=== PATIENT | female | born 1975 | race Caucasian/White ===

== ENCOUNTER 2022-11-14 07:31 | Outpatient (OUT) | payer BC, SELFPAY ==
[2022-11-14 08:02] LABS: Basophils Absolute Auto 0.1 10^3/uL (0.0-0.1); Basophils Percent Auto 0.7 % (0.2-2.0); Eosinophils Absolute Auto 0.1 10^3/uL (0.0-0.7); Eosinophils Percent Auto 1.7 % (0.9-7.0); Hemoglobin 13.9 g/dL (12.0-16.0); Immature Granulocytes Abs Auto 0.02 10^3/uL (0.00-0.03); Immature Granulocytes Pct Auto 0.3 % (0.0-0.5); Lymphocytes Absolute Auto 1.9 10^3/uL (1.2-3.8); Lymphocytes Percent Auto 25.1 % (20.5-60.0); Mean Corpuscular HGB Conc 33.9 g/dL (29.9-35.2); Mean Corpuscular Hemoglobin 31.5 pg (26.7-34.0); Mean Platelet Volume 10.1 fL (9.5-13.5); Monocytes Absolute Auto 0.5 10^3/uL (0.3-0.8); Neutrophils Absolute Auto 5.1 10^3/uL (1.4-6.5); Neutrophils Percent Auto 66.2 % (43.0-75.0); Platelet Count 342 10^3/uL (150-450); Red Blood Count 4.41 10^6/uL (4.20-5.40); Red Cell Distribution Width 12.4 % (11.0-15.0); White Blood Count 7.6 10^3/uL (4.0-11.0)
[2022-11-14 08:30] LABS: Estimated Average Glucose 103 mg/dL; Glycohemoglobin A1C 5.2 % (4.5-6.2)
[2022-11-14 09:18] LABS: Alanine Aminotransferase 19 U/L (14-59); Albumin Globulin Ratio 1.1; Albumin Level 3.7 g/dL (3.4-5.0); Alkaline Phosphatase 65 U/L (46-116); Anion Gap 12.6; Aspartate Amino Transferase 15 U/L (15-37); BUN Creatinine Ratio 11.7; Bilirubin Total 0.5 mg/dL (0.2-1.0); Calcium 9.1 mg/dL (8.5-10.1); Carbon Dioxide 27.4 mmol/L (21.0-32.0); Chloride 102 mmol/L (98-107); Chol HDL Ratio 2.8; Cholesterol 148 mg/dL (<=200); Estimated GFR (African America >60 (>=60); Estimated GFR (Non-African Ame >60 (>=60); Free T3 2.69 pg/mL (2.18-3.98); Globulin 3.5 g/dL; Glucose 95 mg/dL (74-106); HDL Cholesterol 52 mg/dL (40-60); Sodium 138 mmol/L (136-145); Thyroid Stimulating Hormone 1.409 uIU/mL (0.358-3.740); Total Protein 7.2 g/dL (6.4-8.2); Triglycerides 70 mg/dL (<=150)
== END 2022-11-14 07:32 | disposition home or self-care (01) ==
LOC: LAB 07:36
PROVIDERS: PCP Family Medicine; Visit Provider Family Medicine
DX: Z00.00 Encounter for general adult medical examination without abnormal findings (principal); E78.5 Hyperlipidemia, unspecified; R73.09 Other abnormal glucose
CPT/HCPCS: 36415; 80053; 80061; 83036; 83525; 84436; 84443; 84481; 85025

== ENCOUNTER 2024-04-05 08:16 | Outpatient (OUT) | payer BC, SELFPAY ==
[2024-04-05 08:55] LABS: Basophils Percent Auto 0.4 % (0.2-2.0); Eosinophils Absolute Auto 0.2 10^3/uL (0.0-0.7); Eosinophils Percent Auto 2.2 % (0.9-7.0); Hematocrit 40.4 % (36.0-48.0); Hemoglobin 13.8 g/dL (12.0-16.0); Immature Granulocytes Abs Auto 0.03 10^3/uL (0.00-0.03); Immature Granulocytes Pct Auto 0.3 % (0.0-0.5); Lymphocytes Absolute Auto 2.1 10^3/uL (1.2-3.8); Mean Corpuscular HGB Conc 34.2 g/dL (29.9-35.2); Mean Corpuscular Hemoglobin 30.9 pg (26.7-34.0); Mean Corpuscular Volume 90.6 fL (81.0-99.0); Mean Platelet Volume 9.7 fL (9.5-13.5); Monocytes Absolute Auto 0.6 10^3/uL (0.3-0.8); Monocytes Percent Auto 6.1 % (1.7-12.0); Neutrophils Absolute Auto 6.2 10^3/uL (1.4-6.5); Platelet Count 349 10^3/uL (150-450); Red Blood Count 4.46 10^6/uL (4.20-5.40); Red Cell Distribution Width 12.7 % (11.0-15.0); White Blood Count 9.1 10^3/uL (4.0-11.0)
[2024-04-05 09:12] LABS: Estimated Average Glucose 111 mg/dL; Glycohemoglobin A1C 5.5 % (4.5-6.2)
[2024-04-05 09:43] LABS: Alanine Aminotransferase 23 U/L (14-59); Albumin Globulin Ratio 1.1; Albumin Level 3.6 g/dL (3.4-5.0); Alkaline Phosphatase 57 U/L (46-116); Anion Gap 10.9; Aspartate Amino Transferase 11 U/L (15-37); BUN Creatinine Ratio 13.3; Bilirubin Total 0.7 mg/dL (0.2-1.0); Calcium 8.9 mg/dL (8.5-10.1); Carbon Dioxide 28.1 mmol/L (21.0-32.0); Chloride 105 mmol/L (98-107); Cholesterol 168 mg/dL (<=200); Estimated GFR (African America >60 (>=60 mL/min/1.73m^2); Estimated GFR (Non-African Ame >60 (>=60 mL/min/1.73m^2); Free T3 2.78 pg/mL (2.18-3.98); Globulin 3.4 g/dL; Glucose 103 mg/dL (74-106); HDL Cholesterol 56 mg/dL (40-60); Sodium 140 mmol/L (136-145); Thyroid Stimulating Hormone 1.418 uIU/mL (0.358-3.740); Triglycerides 65 mg/dL (<=150)
[2024-04-06 11:07] LABS: Insulin 17.3 uIU/mL (2.6-24.9)
== END 2024-04-05 08:17 | disposition home or self-care (01) ==
LOC: LAB 08:17
PROVIDERS: PCP Family Medicine; Visit Provider Family Medicine
DX: R53.83 Other fatigue (principal); R06.00 Dyspnea, unspecified; E78.5 Hyperlipidemia, unspecified; R73.09 Other abnormal glucose; D64.9 Anemia, unspecified; E03.9 Hypothyroidism, unspecified; E55.9 Vitamin D deficiency, unspecified; I10 Essential (primary) hypertension
CPT/HCPCS: 36415; 80053; 80061; 82306; 83036; 83525; 83540; 84436; 84443; 84481; 85025

== ENCOUNTER 2024-09-02 15:18 | Outpatient (REF) | payer BC, SELFPAY ==
--- OUTSIDE RECORDS SUMMARY | 2024-09-02 15:20 | XMS_ITS | Patient Health Record ---
Author Organization [facility] in [place] Address [address] [place] [address] Care Team Providers Care Sleeve Turner Name Role Phone Joselo Javon Primary Care Provider Allergies Allergen (clinical drug ingredient) Drug/Non Drug Allergy documented on EMR Reaction Allergy Type Onset Date Status hydromorphone Dilaudid nausea and itching Drug Allergy Active Substance with sulfonamide structure and antibacterial mechanism of action (substance) Sulfa Antibiotics itching Drug Allergy Active ciprofloxacin Ciprofloxacin vomiting Drug Allergy Active Results Component Value Reference Range Notes INSULIN Reviewed date:04/06/2024 11:13:03 AM Interpretation: Performing Lab: Notes/Report: [facility] , Insulin 17.3 2.6-24.9 uIU/mL [address] [place], [place] [id number] Performed at: [facility] Launch Check Out: Garrett Guy PhD, Phone: [phone] Performing Lab: see note - [facility] LB VITAMIN D 25 [place] Reviewed date:04/05/2024 02:09:44 PM Interpretation: Performing Lab: Notes/Report: [facility] , Vitamin D 23.3 <20 ng/mL Vit D deficient >100 ng/mL Potential Toxicity 20-<30 ng/mL Vit D insufficient 30-100 ng/mL Vit D sufficient Performing Lab: see note - [facility] LB TSH Reviewed date:04/05/2024 02:09:44 PM Interpretation: Performing Lab: Notes/Report: [facility] , Thyroid Stimulating Hormone 1.418 0.358-3.740 u IU/mL Performing Lab: see note - [facility] LB T4 Reviewed date:04/05/2024 02:09:44 PM Interpretation: Performing Lab: Notes/Report: [facility] , T4 Thyroxine 7.50 4.80-13.90 ug/dL Performing Lab: see note ML - [facility] LB PROF 14(COMP METB) Reviewed date:04/05/2024 02:09:44 PM Interpretation: Performing Lab: Notes/Report: [facility] , Sodium 140 136-145 mmol/L Potassium 4.0 3.5-5.1 mmol/L Chloride 105 98-107 mmol/L Carbon Dioxide 28.1 21.0-32.0 mmol/L Anion Gap 10.9 Glucose 103 74-106 mg/dL Blood Urea Nitrogen 10.0 7.0-18.0 mg/dL Creatinine 0.75 0.55-1.02 mg/dL Estimated GFR ( Teri >60 >=60 mL/min/1.73m 2 Estimated GFR (Non- Miley >60 >=60 mL/min/1.73m 2 BUN Creatinine Ratio 13.3 Calcium 8.9 8.5-10.1 mg/dL Bilirubin Total 0.7 0.2-1.0 mg/dL Aspartate Amino Transferase 11 15-37 U/L Alanine Aminotransferase 23 14-59 U/L Alkaline Phosphatase 57 46-116 U/L Total Protein 7.0 6.4-8.2 g/dL Albumin Level 3.6 3.4-5.0 g/dL Globulin 3.4 Albumin Globulin Ratio 1.1 Performing Lab: see note ML - [facility] LB LIPID PROFILE Reviewed date:04/05/2024 02:09:44 PM Interpretation: Performing Lab: Notes/Report: [facility] , Triglycerides 65 <=150 mg/dL Cholesterol 168 <=200 mg/dL HDL Cholesterol 56 40-60 mg/dL > or =60 mg/dl - LOW CARDIOVASCULAR RISK <40 mg/dl - HIGH CARDIOVASCULAR RISK LDL Cholesterol Calculated 99.0 <100 mg/dl OPTIMAL 130-159 mg/dl BORDERLINE HIGH 160-189 mg/dl HIGH 100-129 mg/dl NEAR OR ABOVE OPTIMAL >190 mg/dl VERY HIGH VLDL CHOLESTEROL 13.0 Chol HDL Ratio 3.0 7.1 - 11.0 MODERATE RISK 3.3 - 4.4 LOW RISK >11.0 HIGH RISK 4.4 - 7.1 AVERAGE RISK Performing Lab: see note - [facility] LB IRON Reviewed date:04/05/2024 02:09:44 PM Interpretation: Performing Lab: Notes/Report: [facility] , Iron 138.0 50.0-170.0 ug/dL Performing Lab: see note - [facility] LB GLYCOHEMOGLOBIN A1C Reviewed date:04/05/2024 02:09:44 PM Interpretation: Performing Lab: Notes/Report: [facility] , Glycohemoglobin A1C 5.5 4.5-6.2 % ADA RECOMMENDED LIMIT 4.0 - 6.0 > 7.0 ADA THERAPEUTIC TARGET < 7.0 ACTION SUGGESTED Estimated Average Glucose 111 Performing Lab: see note - [facility] FREE T3 Reviewed date:04/05/2024 02:09:44 PM Interpretation: Performing Lab: Notes/Report: [facility] , Free T3 2.78 2.18-3.98 pg/mL Performing Lab: see note - [facility] CBC AUTO DIFF Reviewed date:04/05/2024 02:09:44 PM Interpretation: Performing Lab: Notes/Report: [facility] , White Blood Count 9.1 4.0-11.0 10 3/uL Red Blood Count 4.46 4.20-5.40 10 6/uL Hemoglobin 13.8 12.0-16.0 g/dL Hematocrit 40.4 36.0-48.0 % Mean Corpuscular Volume 90.6 81.0-99.0 fL Mean Corpuscular Hemoglobin 30.9 26.7-34.0 pg Mean Corpuscular HGB Conc 34.2 29.9-35.2 g/dL Red Cell Distribution Width 12.7 11.0-15.0 % Platelet Count 349 150-450 10 3/uL Mean Platelet Volume 9.7 9.5-13.5 fL Neutrophils Percent Auto 68.0 43.0-75.0 % Lymphocytes Percent Auto 23.0 20.5-60.0 % Monocytes Percent Auto 6.1 1.7-12.0 % Eosinophils Percent Auto 2.2 0.9-7.0 % Basophils Percent Auto 0.4 0.2-2.0 % Immature Granulocytes Pct Auto 0.3 0.0-0.5 % Neutrophils Absolute Auto 6.2 1.4-6.5 10 3/uL Lymphocytes Absolute Auto 2.1 1.2-3.8 10 3/uL Monocytes Absolute Auto 0.6 0.3-0.8 10 3/uL Eosinophils Absolute Auto 0.2 0.0-0.7 10 3/uL Basophils Absolute Auto 0.0 0.0-0.1 10 3/uL Immature Granulocytes Abs Auto 0.03 0.00-0.03 10 3/uL Performing Lab: see note ML - The [facility] Reason For Referral No Information Medications Medication SIG (Take, Route, Frequency, Duration) [...] 02/20/1988 When did you stop smoking? 02/19/2018 Alcohol Screen (Audit-C) Question Answer Notes Did you have a drink contain ing alcohol in the past year? Yes How often did you have 6 or more drinks on one occasion in the past year? Never (0 point) How many drinks did you have on a typical day when you were drinking in the past year? 1 or 2 drinks (0 point) How often did you have a dri nk containing alcohol in the past year? Less than monthly (1 point) Points 1 Interpretation Negative Problems Problem Type SNOMED Code ICD Code Onset Dates Problem Status W/U Status Risk Notes Problem Gastroesophageal reflux disease (089945802) GERD (gastroesophageal reflux disease) (K21.9) Active confirmed Problem Dyspnea (031712706) Dyspnea (R06.00) Active con firmed Problem Overweight (715192544) Over weight (E66.3) Active confirmed Problem Acute gastroenteritis (30375153) Acute gastroenteritis (K52.9) Active confirmed Problem Onychomycosis caused by dermatophyte (391215158) Dermatophytic onychia (B35.1) Active confirmed Problem Fatigue (11703294) Activity intolerance related to fatigue (R53.83) Active confirmed Vital Signs Blood pressure diastolic 94 mm Hg 04/02/2024 Height 62 in 04/02/2024 Blood pressure systolic 154 mm Hg 04/02/2024 Weight 215 lbs 04/02/2024 BMI 39.32 kg/m2 04/02/2024 Encounters Encounter Location Date Provider Diagnosis [facility] [address] [place] [address] 04/02/2024 Javon Josue Fatigue R53.[address] [facility] [address] [place] [address] 04/05/2024 Javon Josue Assessments Encounter Date Diagnosis (ICD Code) Assessment Notes Treatment Notes Treatment Clinical Notes Section Notes 04/02/2024 Fatigue (ICD-10 - R53.83) 04/02/2024 Dyspnea (ICD-10 - R06.00) Plan Of Treatment Pending Test Test Name Order Date CMP (COMPLETE METABOLIC PANEL) 3 HEMOGLOBIN A1C (GLYCO) 04/02/2024 HEMOGLOBIN A1C (GLYCO) 11/06/2022 IRON, TOTAL 04/02/2024 LIPID PANEL (CHOL/TRIG/HDL/LDL) 04/02/19 25 LIPID PANEL (CHOL/TRIG/HDL/LDL) 11/07/19 23 CBC WITH DIFF 11/06/2022 CBC WITH DIFF 04/02/2024 VITAMIN D, 25 LEVEL (TOTAL) 04/02/2024 Insulin Level 04/02/2024 Insulin Level 11/06/2022 THYROID PANEL (T4/TSH/FREE T3) 3 THYROID PANEL (T4/TSH/FREE T3) 5 CMP (COMP MET BARRIOS) w/eGFR CKD-EPI 2024 Insurance Providers Payer Name Payer Address Payer Phone Subscriber Number Group Number Insured Name Patient Relationship to Insured Coverage Start Date Coverage End Date [employer] PPO PLUS LOCAL PLAN [address] [place] [phone] [id number] Mary Zimmer Self - patient is the insured Medical (General) History Medical History History ICD Code ONYCHIA OBESITY GASTROENTERITIS FATIGUE NEAR SYNCOPE Surgical History Surgery Date(Month/Year) hysterectomy tubal Hospitalization History Reason Date(Month/Year) see above
[2024-09-05 12:08] LABS: Age Gdln ACOG Testing Note (.); IGP, Aptima HPV, rfx 16/18,45 Note (.)
== END 2024-09-02 15:19 | disposition home or self-care (01) ==
LOC: LAB 15:18
PROVIDERS: PCP Family Medicine; Visit Provider Obstetrics & Gynecology
DX: Z01.419 Encounter for gynecological examination (general) (routine) without abnormal findings (principal)
CPT/HCPCS: 88175

== ENCOUNTER 2024-09-24 08:39 | Outpatient (OUT) | payer BC, SELFPAY ==
--- OUTSIDE RECORDS SUMMARY | 2023-04-23 06:56 | XMS_ITS ---
Author Organization The [facility] in [place] Address [address] [place] [address] Care Team Providers Care Trainmaster Name Role Phone Javon Ash Primary Care Provider [phone] STACI ASH Unavailable [phone] REASON FOR VISIT perioral dermatitis Medications Medication SIG (Take, Route, Frequency, Duration) Notes Start Date End Date Status Triamcinolone Acetonide 0.1 % 1 application Externally Twice a day for 04/23/2023 Active Encounters Encounter Location Date Provider Diagnosis [address] [address] 04/23/2023 STACI ASH Plan Of Treatment Medication Medication Name Sig Start Date Stop Date Notes Triamcinolone Acetonide 0.1 % 1 applicat ion Externally Twice a day for 30 04/23/2023 Progress Notes * YOVANY RolandmteDOB: [birth year] (47 yo F)Acc No.[id number]:04/23/2023 Patient: Mary Maynard :1975 A ge:47 Y S ex:Female Address:[address] [place] [address], [address] * Refills Start Triamcinolone Acetonide Cream, 0.1 %, Externally, 60, 1 application, Twice a day, 30, Refills=11 * true * Date: Generated for Printi ng/Famurrayg/eTransmitting on: 0 09/24/2024 08:43 AM EDT
--- OUTSIDE RECORDS SUMMARY | 2024-04-02 12:00 | XMS_ITS ---
Author Organization The [facility] in [place] Address [address] [place] [address] Care Team Providers Care Range Aide Name Role Phone Javon Josue Primary Care Provider [phone] Allergies Allergen (clinical drug ingredient) Drug/Non Drug Allergy documented on EMR Reaction Allergy Type Onset Date Status hydromorphone Dilaudid nausea and itching Drug Allergy Active Substance with sulfonamide structure and antibacterial mechanism of action (substance) Sulfa Antibiotics itching Drug Allergy Active ciprofloxacin Ciprofloxacin vomiting Drug Allergy Active REASON FOR VISIT Shortness of Breath, Fatigue, Lightheaded, Dizziness, Lack of Modivation, Sometimes with chest painin morning and sometime in nightime (Wakes patient from sleep) Medications Medication SIG (Take, Route, Frequency, Duration) Notes Start Date End Date Status Pristiq 50 MG 1 tablet Orally Once a day for 30 days 04/02/2024 Active Social History Tobacco Use: Social History Observation Description Date Details (start date - stop date) Former Smoker 02/20/1988 - 02/19/2018 Tobacco Use/Smoking Question Answer Notes Patient is a former smoker When did you start smoking? 02/20/1988 When did you stop smoking? 02/19/2018 Problems Problem Type SNOMED Code ICD Code Onset Dates Problem Status W/U Status Risk Notes Problem Dyspnea (R06.00) Active confirmed Vital Signs Blood pressure systolic 154 mm Hg 04/02/19 25 Blood pressure diastolic 94 mm Hg 025 Height 62 in 04/02/2024 Weight 215 lbs 04/02/2024 BMI 39.32 kg/m2 04/02/2024 Encounters Encounter Location Date Provider Diagnosis [facility] [address] [place] [address] 04/02/2024 Javon Josue Fatigue R53.83 and Dyspnea R06.00 Assessments Encounter Date Diagnosis (ICD Code) Assessment Notes Treatment Notes Treatment Clinical Notes Section Notes 04/02/2024 Fatigue (ICD-10 - R53.83) 04/02/2024 Dyspnea (ICD-10 - R06.00) Plan Of Treatment Medication Medication Name Sig Start Date Stop Date Notes Pristiq 50 MG 1 tablet Orally Once a day for 30 days 04/02 Pending Test Test Name Order Date HEMOGLOBIN A1C (GLYCO) 04/02/2024 IRON, TOTAL 04/02/2024 LIPID PANEL (CHOL/TRIG/HDL/LDL) 04/02/19 25 CBC WITH DIFF 04/02/2024 VITAMIN D, 25 LEVEL (TOTAL) 04/02/2024 Insulin Level 04/02/2024 THYROID PANEL (T4/TSH/FREE T3) CMP (COMP MET BARRIOS) w/eGFR CKD-EPI 2024 Progress Notes * YOVANY RolandYomairaOB: [birth year] (48 yo F)Acc No.[id number]:04/02/2024 Progress Note Patient: Mary HENNING Provider: Galileo Josue ([facility])MD :1975 A ge:48 Y S ex:Female Date:04/02/2024 Address:[address] [place], [place] [address] Check In:03:53 PM ESTCheck O ut:04:30 PM EST Subjective: * Chief Complaints: * S hortness of Breath, Fatigue, Lightheaded, Dizziness, Lack of ModivationSometimes with chest pain in morning and sometime in nightime (Wakes patient from sleep) * HPI: D epression Screening: PHQ-2 (2015 Edition) L ittle interest or pleasure in doing things??Several days F eeling down, depressed, or hopeless? S everal days T otal Score 2 [place] for last coule months fatigue no PC with activity - some with laying dose. D epression Screening: PHQ-9 L ittle interest or pleasure in doing things?Several days F eeling down, depressed, or hopeless S everal days T rouble falling or staying asleep, or sleeping too much N early every day F eeling tired or having little energy N early every day P oor appetite or overeating M ore than half the days F eeling bad about yourself or that you are a failure, or have let yourself or your family down N ot at all T rouble concentrating on things, such as reading the newspaper or watching television S ever M oving or speaking so slowly that other people could have noticed; or the opposite, being so fidgety or restless that you have been moving around a lot more than usual N ot at all T houghts that you would be better off or of hurting yourself in some way N ot at all T otal Score 1 1 I nterpretation M oderate Depression * ROS: E ENT: hearing changes d enies. v isual changes d enies.?non-healing mouth sores d enies. s wollen glands or neck lumps d enies. h oarseness d enies. s ore throat d enies. d ifficulty swallowing d enies. n ose bleeds d enies. n leyda congestion d enies. e ar ache d enies. e ar discharge?denies. r inging in ears d enies. l ight sensitivity d enies. e ye pain d enies. b lurring d enies. e ye irritation d enies. d ouble vision d enies.?vision loss d enies. G eneral/Constitutional: Sweats: D enies. F atigue d enies. S leep problems d enies. A norexia d enies. M alaise d enies. W eight loss d enies.?Fatigue or Weakness d enies. F ever or Chills d enies. C ardiovascular: Shortness of Breath w/lying flat d enies. L ightheadedness/dizziness d enies. C hest tightness/ heavy pressure d enies. S welling of legs, ankles, or feet d enies. W aking up with shortness of breath d enies. C hest pain denies. P alpitations d enies. W eight gain d enies. R espiratory: Chronic or frequent cough d enies. C oughing up blood?denies. D ifficulty breathing d enies. P roductive cough d enies. S noring?denies. S hortness of breath that awakens from sleep (PND) d enies. C hest pain d enies. S putum production d enies. W heezing d enies. M usculoskeletal: Joint pain d enies. J oint Fluid d enies. B ack pain d enies. K nee pain d enies. N jessica pain d enies. J oint Stiffness d enies. M uscle cramps d enies. W eakness of muscles d enies. A rthritis d enies. M uscle aches d enies. P ain in shoulder(s) d enies. S wollen joints d enies. * Active Problem List B35.1 Dermatophytic onychi a Modified On:10/31/2022/U Status:confirmed E66.3 Over weight Modified On:10/31/2022/U Status:confirmed K52.9 Acute gastroenteriti s Modified On:10/31/2022/U Status:confirmed R53.83 Activity intolerance related to fatigue Modified On:10/31/2022/U Status:confirmed K21.9 GERD (gastroesophage al reflux disease) Modified On:11/06/2022/U Status:confirmed R06.00 Dyspnea Modified On:04/02/2024/U Status:confirmed * Medical History: * Surgical History: t ubal hysterectomy * Hospitalization/Major Diagno stic Procedure: s ee above * Family History: F ather: , RA, COPD, diagnosed with Unspecified essential hypertension. M other: alive, anemia. B rother(s): alive. 3 brother(s) - healthy. 1 son(s) , 1 daughter(s) - healthy. . * Social History: T obacco Use: T obacco Use/Smoking P atient is a f ormer smoker W hen did you start smoking? 0 02/20/1988 W hen did you stop smoking? 0 02/19/2018 * Medications: D iscontinuedAmoxicillin-Pot Clavulanate 875-125 MG Tablet 1 tablet Orally every 12 hrs Triamcinolone Acetonide 0.1 % Cream 1 application Externally Twice a day Medication List reviewed and reconciled with the patientDiscontinued Amoxicillin-Pot Clavulanate 875-125 MG Tablet 1 tablet Orally every 12 hrs Discontinued Triamcinolone Acetonide 0.1 % Cream 1 application Externally Twice a day Medication List reviewed and reconciled with the patient * Allergies: D ilaudid: nausea and itchingSulfa Antibiotics: itchingCiprofloxacin: vomitingno[Allergies Verified] Objective: * Vitals: W t:215lbs, Ht: 62 in, BP:154/94mm Hg, BMI:39.32Index, Ht-cm: 157.48 cm, Wt-k.52 kg. * Examination: P hysical Exam: GENERAL: w ell developed, well nourished, in no acute distress. HEAD: n ormocephalic/atraumatic. EYES: p upils equal, round and reactive to light, conjunctivae and sclerae normal. EARS: n o deformity or lesion of external ear, canals and TM appear normal bilaterally, TM's intact, not inflamed with normal light reflex, hearing grossly normal to conversational speech. NOSE: n o deformity, discharge, inflammation, or lesions.? MOUTH: m ucous membranes moist, normal oropharynx and posterior pharynx without lesions or exudates, tongue normal, dentition normal. NECK: n jessica supple, no masses or palpable cervical nodes, trachea midline, thyroid without nodules, masses, tenderness, or enlargement. CHEST: n o chest wall deformity, no chest wall tenderness.? LUNGS: n ormal respiratory effort and clear to auscultation, no wheezes, rales, or rhonchi, good air exchange. CARDIO: r egular rate and rhythm, normal S1 and S2, nor murmur, rub, or gallop. PULSES: n ormal capillary refill. ABDOMEN: s oft, non-distended, non-tender, no masses. MUSCULOSKELETAL: n o deformity or scoliosis noted, normal range of motion, joints normal, no erythema, edema, effusion, or ecchymosis. EXTREMITY: n o clubbing, cyanosis, edema, or deformity with normal ROM in both upper and lower bilateral extremities. NEUROLOGIC: g rossly normal. SKIN: n o rashes, ulcerations, or suspicious lesions. LYMPH NODES: n o cervical adenopathy, nodes normal. MENTAL STATUS: a lert and oriented x3, normal mood and affect. Assessment: * Assessment: 1. F atigue - R53.83 (Primary) 2 . D yspnea - R06.00 Plan: * Treatment: 2. D yspnea L AB: HEMOGLOBIN A1C (GLYCO) L AB: IRON, TOTAL L AB: LIPID PANEL (CHOL/TRIG/HDL/LDL) L AB: CBC WITH DIFF L AB: VITAMIN D, 25 LEVEL (TOTAL) L AB: Insulin Level L AB: THYROID PANEL (T4/TSH/FREE T3) L AB: CMP (COMP MET BARRIOS) w/eGFR CKD-EPI * Procedure Codes: * * Sign off status: Completed Visit Status: C HK (Check Out) true * Provider: Galileo Josue ([facility])MD Date: 0 04/02/2024 Generated for Printi ng/Faxing/eTransmitting on: 0 09/24/2024 08:44 AM EDT History and Physical Notes * HPI (History of Present Illness) Category Sub-Category Detail Notes Category Not es Depression Screening PHQ-9 Little inte rest or pleasure in doing things: Several days Feeling down, depressed, or hopeless: Se veral days Trouble falling or staying asleep, or sl eeping too much: Nearly every day Feeling tired or having little energy: N early every day Poor appetite or overeating: More than h mackenzie the days Feeling bad about yourself o r that you are a failure, or have let yourself or your family down: Not at all Trouble concentrating on thi ngs, such as reading the newspaper or watching television: Several days Moving or speaking so slowly that other people could have noticed; or the opposite, being so fidgety or restless that you have been moving around a lot more than usual: Not at all Thoughts that you would be b lee off or of hurting yourself in some way: Not at all Total Score: 11 Interpretation: Moderate Depression Depression Screening PHQ-2 (2015 Edition) Little interest or pleasure in doing things?: Several days [place] for last coule months fatigue no PC with activity - some with laying dose Feeling down, depressed, or hopeless?: S everal days Total Score: 2 Examination Category Sub-Category Detail Notes Category Not es Physical Exam GENERAL: well developed, well nourished, in no acute distress HEAD: normocephalic/atraum atic EYES: pupils equal, round and reactive to light, conjunctivae and sclerae normal EARS: no deformity or lesi on of external ear, canals and TM appear normal bilaterally, TM's intact, not inflamed with normal light reflex, hearing grossly normal to conversational speech NOSE: no deformity, discha rge, inflammation, or lesions MOUTH: mucous membranes areli st, normal oropharynx and posterior pharynx without lesions or exudates, tongue normal, dentition normal NECK: neck supple, no mass es or palpable cervical nodes, trachea midline, thyroid without nodules, masses, tenderness, or enlargement CHEST: no chest wall deform ity, no chest wall tenderness LUNGS: normal respiratory e ffort and clear to auscultation, no wheezes, rales, or rhonchi, good air exchange CARDIO: regular rate and rhy thm, normal S1 and S2, nor murmur, rub, or gallop PULSES: normal capillary ref ill ABDOMEN: soft, non-distended, non-tender, no masses RECTAL: MUSCULOSKELETAL: no deformity or scol iosis noted, normal range of motion, joints normal, no erythema, edema, effusion, or ecchymosis EXTREMITY: no clubbing, cyanosi s, edema, or deformity with normal ROM in both upper and lower bilateral extremities NEUROLOGIC: grossly normal SKIN: no rashes, ulceratio ns, or suspicious lesions LYMPH NODES: no cervical adenopat hy, nodes normal MENTAL STATUS: alert and oriented x 3, normal mood and affect
--- OUTSIDE RECORDS SUMMARY | 2024-04-05 10:08 | XMS_ITS ---
Author Organization The [facility] in [place] Address [address] [place] [address] Care Team Providers Care Folder Seamer Name Role Phone Javon Josue Primary Care Provider REASON FOR VISIT Lab Results Encounters Encounter Location Date Provider Diagnosis [facility] [address] [place] [address] 04/05/2024 Javon Josue Plan Of Treatment No Information Progress Notes * John PEDROZAeDOB: [birth year] (48 yo F)Acc No.[id number]:04/05/2024 Patient: Mary HENNING :1975 A ge:48 Y S ex:Female Address:[address] [place] [address], [address] * true * Date: Generated for Ravinder gomez/Fernando/eTransmitting on: 0 09/24/2024 08:44 AM EDT
--- OUTSIDE RECORDS SUMMARY | 2024-09-24 08:44 | XMS_ITS | Encounter Summary ---
Author Organization [facility] Address [address] [facility] [place] [address] Care Team Providers Care Hamper Maker Name Role Phone Unavailable Primary Care Provider Unavailabl e Encounter Details Date Type Department Care Team (Late st Contact Info) Description 09/09/2024 Orders Only [facility] [address] [place] [address] Chantell Sandoval LPN [address] [place] [address] [place] [address] Social History Tobacco Use Types Packs/Day Years Used Date Smoking Tobacco: Never Assessed Comments No Sex and Gender Information Value Date Recorded Sex Assigned at Not on file Legal Sex Female 6:56 PM EDT Gender Identity Not on file Sexual Orientation Not on file documented as of this encounter Plan of Treatment Not on file documented as of this encounter Procedures Procedure Name Priority Date/Time Associated Diagnosis Comments PAP SMEAR Routine 09/02/2024 12:00 AM EDT documented in this encounter Results * Pap Smear (09/02/2024 12:00 AM EDT) Swab Cervical swab / Unknown us Carla Nurse [facility] CYTOLOGY ORDERABLES Final Result EXTERNAL LAB documented in this encounter Visit Diagnoses Not on filedocumented in this encounter
--- OUTSIDE RECORDS SUMMARY | 2024-09-24 08:44 | XMS_ITS | Encounter Summary ---
Author Organization [facility] Address [address] [place] [address] Care Team Providers Care Senior Linux Administrator Name Role Phone Unavailable Primary Care Provider Unavailabl e Encounter Details Date Type Department Care Team (Late st Contact Info) Description 09/02/2024 Telephone [facility] [address] [id number] Madisyn Bell LPN Social History Tobacco Use Types Packs/Day Years Used Date Smoking Tobacco: Never Assessed Comments No Sex and Gender Information Value Date Recorded Sex Assigned at Not on file Legal Sex Female 6:56 PM EDT Gender Identity Not on file Sexual Orientation Not on file documented as of this encounter Miscellaneous Notes * Telephone Encounter - Madisyn Bell LPN - 09/02/2024 8:56 AM EDT Please refer to Dr Rouse for screening colonoscopy. documented in this encounter Plan of Treatment Not on file documented as of this encounter Visit Diagnoses Not on filedocumented in this encounter
--- OUTSIDE RECORDS SUMMARY | 2024-09-24 08:44 | XMS_ITS | Patient Health Record ---
Author Organization [facility] [place] Address [address] [place] [address] Care Team Providers Care Gis Web Developer Name Role Phone Joselo Javon Primary Care Provider Allergies Allergen (clinical drug ingredient) Drug/Non Drug Allergy documented on EMR Reaction Allergy Type Onset Date Status hydromorphone Dilaudid nausea and itching Drug Allergy Active Substance with sulfonamide structure and antibacterial mechanism of action (substance) Sulfa Antibiotics itching Drug Allergy Active ciprofloxacin Ciprofloxacin vomiting Drug Allergy Active Results Component Value Reference Range Notes TSH Reviewed date:04/05/2024 02:09:44 PM Interpretation: Performing Lab: Notes/Report: [facility] , Thyroid Stimulating Hormone 1.418 0.358-3.740 u IU/mL Performing Lab: see note ML - [facility] LB T4 Reviewed date:04/05/2024 02:09:44 PM Interpretation: Performing Lab: Notes/Report: [facility] , T4 Thyroxine 7.50 4.80-13.90 ug/dL Performing Lab: see note ML - [facility] LB PROF 14(COMP METB) Reviewed date:04/05/2024 02:09:44 PM Interpretation: Performing Lab: Notes/Report: [facility] , Sodium 140 136-145 mmol/L Potassium 4.0 [...] 1.1 Performing Lab: see note ML - [facility] LIPID PROFILE Reviewed date:04/05/2024 02:09:44 PM Interpretation: Performing Lab: Notes/Report: [facility] , Triglycerides 65 <=150 mg/dL Cholesterol 168 [...] 7.1 AVERAGE RISK Performing Lab: see note ML - [facility] IRON Reviewed date:04/05/2024 02:09:44 PM Interpretation: Performing Lab: Notes/Report: [facility] , Iron 138.0 50.0-170.0 ug/dL Performing Lab: see note ML - [facility] LB GLYCOHEMOGLOBIN A1C Reviewed date:04/05/2024 02:09:44 PM Interpretation: Performing Lab: Notes/Report: [facility] , Glycohemoglobin A1C 5.5 4.5-6.2 % ADA RECOMMENDED LIMIT 4.0 - 6.0 > 7.0 ADA THERAPEUTIC TARGET < 7.0 ACTION SUGGESTED Estimated Average Glucose 111 Performing Lab: see note ML - [facility] FREE T3 Reviewed date:04/05/2024 02:09:44 PM Interpretation: Performing Lab: Notes/Report: [facility] , Free T3 2.78 2.18-3.98 pg/mL Performing Lab: see note ML - [facility] LB CBC AUTO DIFF Reviewed date:04/05/2024 02:09:44 PM Interpretation: Performing Lab: Notes/Report: [facility] , White Blood Count 9.1 4.0-11.0 10 [...] Performing Lab: see note ML - [facility] LB IGP,Aptima HPV,Age Gdln Reviewed date:09/06/2024 03:08:54 PM Interpretation: Performing Lab: Notes/Report: SPATULA-ALONE V[facility] , Age Gdln ACOG Testing Note . FLAG LEGEND: Kathryn Thornton MD, <-Panic Low,>-Panic High,A-Abnormal,AA-Critical Abnormal [address] [place] [address] ------ 01 =G Juniejc Landrum L-Low Normal,H-High Normal,LL-Alert Low,HH-Alert High Age Algo ACOG Catrina... [age] ------ Clinician Provided Cytology Information TESTS RESULT FLAG UNITS REF RANGE LAB ------ Source.............Vagina No. of containers..01 ThinPrep Vial Performed at: [facility], Aptima HPV, rfx 16/18,45 Note . Specimen adequacy: 02 <-Panic Low,>-Panic High,A-Abnormal,AA-Critical Abnormal Note: Note 02 cancer. Both false-positive and false-negative reports do ------ should not be used as the sole means of detecting cervical Kathryn Amy Thornton MD, Samara Mccartney, Machine Grainer ([facility]) THIS SPECIMEN WAS RESCREENED PART OF OUR CREATIVE DESIGNER PROGRAM. HPV Genotype Reflex Note 02 FLAG LEGEND: ------ the use of an image guided system. DIAGNOSIS: 02 This liquid based ThinPrep(R) pap test was screened with uterine cervix. It is not a diagnostic procedure and NEGATIVE FOR INTRAEPITHELIAL LESION OR MALIGNANCY. detection of premalignant and malignant conditions of the occur. [facility], Machine Grainer ([facility]) . 02 Criteria not met, HPV Genotype not performed. Performed at: Performed by: 02 Test Methodology: Note 02 L-Low Normal,H-High Normal,LL-Alert Low,HH-Alert High Satisfactory for evaluation. The Pap smear is a screening test designed to aid in the [address] [place] [id number] TESTS RESULT FLAG UNITS REF RANGE LAB ------ QC reviewed by: 02 HPV Aptima Negative Negative risk HPV types (16,18,31,33,35,39,45,51,52 ,56,58,59,66,68) Performed at: - [facility] Performed at: = - [address] [id number] without differentiation. Military Pilot: Kathryn Thornton MD, Phone: [phone] [address] [place] [phone] This nucleic acid amplification test detects fourteen high- Military Pilot: Kathryn Thornton MD, Phone: [phone] Performing Lab: [facility] V[facility] D 25 [place] Reviewed date:04/05/2024 02:09:44 PM Interpretation: Performing Lab: Notes/Report: [facility] , Vitamin D 23.3 <20 ng/mL Vit D deficient >100 ng/mL Potential Toxicity 20-<30 ng/mL Vit D insufficient 30-100 ng/mL Vit D sufficient Performing Lab: see note ML - [facility] LB INSULIN Reviewed date:04/06/2024 11:13:03 AM Interpretation: Performing Lab: Notes/Report: [facility] , Insulin 17.3 2.6-24.9 uIU/mL [address] [place], [place] [id number] Performed at: [facility] Military Pilot: Garrett Guy PhD, Phone: [phone] Performing Lab: see note LC - [facility] LB Reason For Referral No Information Medications Medication [...] Status Risk Notes Problem Gastroesophageal reflux disease (051426574) GERD (gastroesophageal reflux disease) (K21.9) Active confirmed Problem Dyspnea (236011712) Dyspnea (R06.00) Active con firmed Problem Overweight (730988220) Over weight (E66.3) Active confirmed Problem Acute gastroenteritis (68429620) Acute gastroenteritis (K52.9) Active confirmed Problem Onychomycosis caused by dermatophyte (643246268) Dermatophytic onychia (B35.1) Active confirmed Problem Fatigue (44018865) Activity intolerance related to fatigue (R53.83) Active confirmed Vital Signs Blood pressure diastolic 94 mm Hg 04/02/2024 Height 62 in 04/02/2024 Blood pressure systolic 154 mm Hg 04/02/2024 Weight 215 lbs 04/02/2024 BMI 39.32 kg/m2 04/02/2024 Encounters Encounter Location Date Provider Diagnosis [facility] [address] [place] [address] 04/02/2024 Javon Josue Fatigue R53.83 and Dyspnea R06.00 [facility] [address] [place] [address] 04/05/2024 Javon Josue Assessments Encounter Date Diagnosis [...] ACCESS PPO PLUS LOCAL PLAN [address] [place] [address] [id number] Mary Zimmer Self - patient is the insured Medical (General) History Medical History History ICD Code ONYCHIA OBESITY GASTROENTERITIS FATIGUE NEAR SYNCOPE Surgical History Surgery Date(Month/Year) tubal hysterectomy Hospitalization History Reason Date(Month/Year) see above
== END 2024-09-24 08:40 | disposition home or self-care (01) ==
LOC: LAB 08:41
PROVIDERS: PCP Family Medicine
DX: L68.0 Hirsutism (principal)
CPT/HCPCS: 36415; 82627; 84402; 84403

== ENCOUNTER 2024-09-25 10:18 | Outpatient (OUT) | payer BC, SELFPAY ==
--- NOTE | 2024-09-25 | MM_ITS ---
Patient Name: RAÚL PEDROZA MR#: [id number] : 1975 Exam Date: 09/25/2024 Ordering Doctor: DR TOY BECKFORD . RADIOLOGY REPORT PROCEDURE: MM TOMOSYNTHESIS SCREENING BI COMPARISON: MG MAMM SCREEN 3D [place]AR CAD, 01/17/2021. MG MAMM SCREEN ED[place]AR W CAD, 07/02/2019. INDICATIONS: BREAST CANCER SCREENING Z12.31 Calculator Name NCI Breast Cancer Risk Assessment Tool 5 Year Breast Cancer Risk Not Reported. Lifetime Breast Cancer Risk Not Reported. Personal Breast Cancer No Personal Ovarian Cancer No Treatments None Family Cancers None LOCATION: [facility] BREAST COMPOSITION: There are scattered areas of fibroglandular density. FINDINGS: RIGHT BREAST: No significant suspicious finding. Benign appearing lymph nodes are noted. LEFT BREAST: No significant suspicious finding. Benign-appearing lymph nodes are present. Benign-appearing calcifications are present. DIAGNOSTIC CATEGORY 2--BENIGN FINDING: RECOMMENDATIONS: ROUTINE MAMMOGRAM AND CLINICAL EVALUATION IN 12 MONTHS. PLEASE NOTE: A NORMAL MAMMOGRAM DOES NOT EXCLUDE THE POSSIBILITY OF BREAST CANCER. A CLINICALLY SUSPICIOUS PALPABLE LUMP SHOULD BE BIOPSIED. Dictated by: Kyle Merritt MD on 09/25/2024 at 13:22 Approved by: Kyle Merritt MD on 09/25/2024 at 13:33
== END 2024-09-25 10:19 | disposition home or self-care (01) ==
LOC: MAMMO 10:18
PROVIDERS: PCP Family Medicine; Visit Provider Obstetrics & Gynecology
DX: Z12.31 Encounter for screening mammogram for malignant neoplasm of breast (principal)
CPT/HCPCS: 77063; 77067

== ENCOUNTER 2024-11-11 09:42 | Outpatient (OUT) | payer BC, SELFPAY ==
--- OUTSIDE RECORDS SUMMARY | 2024-11-11 09:48 | XMS_ITS | CCD ---
Author Organization [facility] Care Team Providers Care Electrician Substation Supervisor Name Role Phone JOSELO, DR SMALL Admitting Unavailable JOSELO, DR SMALL Attending Unavailable JOSELO, DR SMALL Primary Care Unavailable JOSELO, DR SMALL Consulting Unavailable [place], DR RUPERT Bowen Consulting Unavailable CARLA, DR YEAGER Admitting Unavailable CARLA, DR YEAGER Attending Unavailable JOSELO, DR SMALL Primary Care Unavailable CARLA, DR YEAGER Consulting Unavailable ZIEBER, DR DEVANG Justin Consulting Unavailable JOSELO, DR SMALL Admitting Unavailable JOSELO, DR SMALL Attending Unavailable JOSELO, DR SMALL Primary Care Unavailable JOSELO, DR SMALL Consulting Unavailable CARLA, DR YEAGER Admitting Unavailable CARLA, DR YEAGER Attending Unavailable JOSELO, DR SMALL Primary Care Unavailable CARLA, DR YEAGER Consulting Unavailable CARLA, DR YEAGER Admitting Unavailable CARLA, DR YEAGER Attending Unavailable JOSELO, DR SMALL Primary Care Unavailable CARLA, DR YEAGER Admitting Unavailable CARLA, DR YEAGER Attending Unavailable JOSELO, DR SMALL Primary Care Unavailable CARLA, DR YEAGER Consulting Unavailable JOHNIE JACK Consulting Unavailable CARLA, DR YEAGER Procedure Practitioner Unavailab le Unavailable Primary Care Provider Unavailabl e TOY AGUIRRE Attending Unavailable Staci Josue Primary Care Physician [phone] Toy AGUIRRE Referring Unavailable Armaan ROUSE Attending Unavailable Allergies Allergy Classification Reported Allergen(s) Allergy Type Date of Onset Reaction(s) Facility (2 sources) HYDROmorphone; Translations: [Dilaudid] Drug Allergy 5 [facility] Repository (1 source) Sulfonamides (Antibiotic) Drug allergy (disorder) 5 [facility] Repository (7 sources) HYDROmorphone; Translations: [hydromorphone] Drug Allergy Itching (finding), Nausea (finding) [facility] Work Phone: (4 sources) Sulfonamides (Antibiotic) Propensity to adverse reactions [facility] (2 sources) Sulfonamide; Translations: [sulfa drugs] Drug allergy Itching (finding) [facility] General Surgery Levels Medications Current Medications Medication Drug Class(es) Dates Sig (Normalized) Sig (Original) spironolactone 50 mg oral tablet (1 source) Aldosterone Antagonist Start: 10-15-2024 take 1 tablet by mouth once daily spironolactone 50 mg Tab 50 mg, Oral, Daily, Refills(s) 0 Start Date: 10/15/24 Status: Ordered Repeat number: 1 Problems Active Problems Problem Classification Problem Date Documented Date Episodic/Chronic Abdominal pain (5 sources) Pelvic and perineal pain; Translations: [PELVIC AND PERINEAL PAIN] Onset: 11-12-2020 Episodic Esophageal disorders (1 source) Gastroesophageal reflux disease 09-18-2024 Chronic Essential hypertension (1 source) Essential hypertension Onset: 04-05-2024 09-18-2024 Chronic Menstrual disorders (5 sources) Excessive and frequent menstruation with irregular cycle; Translations: [Dysmenorrhea, unspecified] Onset: 04-04-2021 Chronic Mood disorders (1 source) Major depressive disorder, single episode, unspecified; Translations: [EYAL DEPRESS D/O SINGLE EPIS UNS] Onset: 04-14-2021 Chronic Other female genital disorders (1 source) Unspecified dyspareunia; Translations: [UNSPECIFIED DYSPAREUNIA] Onset: 04-14-2021 Chronic Other nutritional; endocrine; and metabolic disorders (1 source) Body mass index 30+ - obesity 10-15-2024 Chronic Other nutritional; endocrine; and metabolic disorders (1 source) Obese class III 09-18-2024 Chronic Other screening for suspected conditions (not mental disorders or infectious disease) (8 sources) Encounter for screening mammogram for malignant neoplasm of breast; Translations: [Encounter for screening for malignant neoplasm of cervix] Onset: 01-17-2021 Episodic Residual codes; unclassified (1 source) Other specified postprocedural states; Translations: [OTH SPECIFIED POSTPROCEDURAL STATES] Onset: 04-14-2021 Episodic Substance-related disorders (1 source) Nicotine dependence, cigarettes, uncomplicated; Translations: [NICOTINE DEPEND CIGARETTES UNCOMP] Onset: 04-14-2021 Chronic Unclassified (1 source) PERSONAL HISTORY OF COVID-19; Translations: [PERSONAL HISTORY OF COVID-19] Onset: 04-14-2021 Unclassified (2 sources) CONTACT W/AND (SUSP) EXPOS COVID-19; Translations: [CONTACT W/AND (SUSP) EXPOS COVID-19] Onset: 04-05-2021 Unclassified (1 source) Patient encounter status 10-15-2024 Viral infection (1 source) COVID-19; Translations: [COVID-19] Onset: 04-05-2021 Past or Other Problems Problem Classification Problem Date Documented Date Episodic/Chronic Immunizations and screening for infectious disease (1 source) Encounter for screening for human papillomavirus (HPV); Translations: [ENC SCREENING HUMAN PAPILLOMAVIRUS] Onset: 01-22-2021 Episodic Other female genital disorders (1 source) Other specified noninflammatory disorders of cervix uteri; Translations: [OTH SPEC NONINFLAMM D/O CERV UTERI] Onset: 11-25-2020 Episodic Unclassified (1 source) CONTACT W/AND (SUSP) EXPOS COVID-19; Translations: [CONTACT W/AND (SUSP) EXPOS COVID-19] Onset: 02-22-2021 Results Test Name Value Interpretation Reference Range Facility Ambulatory Visit Summaryon 0 10-15-2024 Ambulatory Visit Summary Ambulatory Visit Summary YOVANY ALPESHYADIRA Coats :1975 Visit Date:10/15/2024 Ambulatory Visit Instructions Your Diagnosis Screening for malignant neoplasm of colon Your Care Team Attending Physician - ANTONY MANUEL, Armaan Justin Primary Care Physician - Joselo MANUEL, Staci Referring Physician - Toy AGUIRRE DO This Is Your Medications List Contact prescribing physician if questions or concerns spironolactone (spironolactone 50 mg Tab) Procedures Performed Abdominal hysterectomy. Discharge Vitals Heart Rate (Peripheral) 72 Respiratory Rate 16 Blood Pressure 124/84 Height 157.4 cm Height 62 in Weight 87 kg Weight 191.802 lb BMI 35.12 Medications What How Much When Instructions Unchanged spironolactone (spironolactone 50 mg Tab) 50 Milligram By Mouth Every day Contact prescribing physician if questions or concerns Allergies HYDROmorphone (Itching, Nausea) sulfa drugs (Itching) Problems Ongoing - Any problem that you are currently receiving treatment for. BMI 35.0-35.9,adult Class 3 obesity Essential hypertension Gastroesophageal reflux disease Screening for malignant neoplasm of colon Patient Survey You may receive a survey via text or e-mail asking about your office visit. Please share your experience with us by completing your survey. We appreciate your feedback and thank you for choosing us for your care. Patient Portal You may access all of your results and other medical record information on our secure patient portal. If you are not signed up for this yet, please contact [employer] at [phone] to get signed up today. Language Information Language assistance services are available as needed. [facility] MM TOMOSYNTHESIS SCREENING B Ion 09-25-2024 [place] [address] Mammography Report Signed Patient: MARY PEDROZA MR#: [id number] : 1975 Acct:[id number] Age/Sex: 49 / F ADM Date: 09/25/24 Loc: MAMMO Attending Dr: Toy Aguirre D.O. Ordering Physician: Toy Aguirre D.O. Results: Date of Service: 09/25/24 Follow Up: Procedure(s): MM tomosynthesis screening BI Accession Number(s): [id number] cc: Toy Aguirre D.O.; Staci Josue M.D. Patient Name: MARY PEDROZA MR#: [id number] : 1975 Exam Date: 09/25/2024 Ordering Doctor: DR TOY AGUIRRE . RADIOLOGY REPORT PROCEDURE: MM TOMOSYNTHESIS SCREENING BI COMPARISON: MG MAMM SCREEN 3D EDGAR CAD, 01/17/2021. MG MAMM SCREEN EDGAR W CAD, 07/02/2019. INDICATIONS: BREAST CANCER SCREENING Z12.31 Calculator Name NCI Breast Cancer Risk Assessment Tool 5 Year Breast Cancer Risk Not Reported. Lifetime Breast Cancer Risk Not Reported. Personal Breast Cancer No Personal Ovarian Cancer No Treatments None Family Cancers None LOCATION: [facility] BREAST COMPOSITION: There are scattered areas of fibroglandular density. FINDINGS: RIGHT BREAST: No significant suspicious finding. Benign appearing lymph nodes are noted. LEFT BREAST: No significant suspicious finding. Benign-appearing lymph nodes are present. Benign-appearing calcifications are present. DIAGNOSTIC CATEGORY 2--BENIGN FINDING: RECOMMENDATIONS: ROUTINE MAMMOGRAM AND CLINICAL EVALUATION IN 12 MONTHS. PLEASE NOTE: A NORMAL MAMMOGRAM DOES NOT EXCLUDE THE POSSIBILITY OF BREAST CANCER. A CLINICALLY SUSPICIOUS PALPABLE LUMP SHOULD BE BIOPSIED. Dictated by: Kyle Merritt MD on 09/25/2024 at 13:22 Approved by: Kyle Merritt MD on 09/25/2024 at 13:33 Dictated By: Kyle Merritt M.D. Signed By: 09/25/24 1334 DD/ 133 TD/TT: Marble Machine Tender: [facility] Radiology, Radiologist, - 09/25/2024 [place] [address] Mammography Report Signed Patient: MARY PEDROZA MR#: [id number] : 1975 Acct:[id number] Age/Sex: 49 / F ADM Date: 09/25/24 Loc: MAMMO Attending Dr: Toy Aguirre D.O. Ordering Physician: Toy Aguirre D.O. Results: Date of Service: 09/25/24 Follow Up: Procedure(s): MM tomosynthesis screening BI Accession Number(s): [id number] cc: Toy Aguirre D.O.; Staci Josue M.D. Patient Name: MARY PEDROZA MR#: [id number] : 1975 Exam Date: 09/25/2024 Ordering Doctor: DR TOY AGUIRRE . RADIOLOGY REPORT PROCEDURE: MM TOMOSYNTHESIS SCREENING BI COMPARISON: MG MAMM SCREEN 3D EDGAR CAD, 01/17/2021. MG MAMM SCREEN EDGAR W CAD, 07/02/2019. INDICATIONS: BREAST CANCER SCREENING Z12.31 Calculator Name NCI Breast Cancer Risk Assessment Tool 5 Year Breast Cancer Risk Not Reported. Lifetime Breast Cancer Risk Not Reported. Personal Breast Cancer No Personal Ovarian Cancer No Treatments None Family Cancers None LOCATION: [facility] BREAST COMPOSITION: There are scattered areas of fibroglandular density. FINDINGS: RIGHT BREAST: No significant suspicious finding. Benign appearing lymph nodes are noted. LEFT BREAST: No significant suspicious finding. Benign-appearing lymph nodes are present. Benign-appearing calcifications are present. DIAGNOSTIC CATEGORY 2--BENIGN FINDING: RECOMMENDATIONS: ROUTINE MAMMOGRAM AND CLINICAL EVALUATION IN 12 MONTHS. PLEASE NOTE: A NORMAL MAMMOGRAM DOES NOT EXCLUDE THE POSSIBILITY OF BREAST CANCER. A CLINICALLY SUSPICIOUS PALPABLE LUMP SHOULD BE BIOPSIED. Dictated by: Kyle Merritt MD on 09/25/2024 at 13:22 Approved by: Kyle Merritt MD on 09/25/2024 at 13:33 Dictated By: Kyle Merritt M.D. Signed By: 09/25/24 1334 DD/ 133 TD/TT: Marble Machine Tender: [facility] [place] Radiology Study observation (narrative) [facility] MM TOMOSYNTHESIS SCREENING B IOrdered By: Radiologist Radiology on 09-25-2024 [facility] [employer] Work Phone: IGP,APTIMA HPV,AGE GDLNon AGE GDLN ACOG TESTING Note . [facility] [place] Comment on above: TESTS RESULT FLAG UN ITS REF RANGE LAB Clinician Provided Cytology Information Source.............[facility] No. of containers..01 ThinPrep Vial Age Algo ACOG Catrina... FLAG LEGEND: L-Low Normal,H-High Normal,LL-Alert Low,HH-Alert High <-Panic Low,>-Panic High,A-Abnormal,AA-Critical Abnormal Performed at: 01 =[address] [place] [address] Kathryn Thornton MD, HPV APTIMA Negative Negative [facility] Comment on above: This nucleic acid am plification test detects fourteen high- risk HPV types (16,18,31,33,35,39,45,51,52,56,58,59,66,68) without differentiation. Performed at: =[address] [id number] Human Capital Manager: Kathryn Thornton MD, Phone: [phone] Performed at: [address] [id number] Human Capital Manager: Kathryn Thornton MD, Phone: [phone] IGP, APTIMA HPV, RFX 16/18,45 Note . [facility] Comment on above: TESTS RESULT FLAG U NITS REF RANGE LAB DIAGNOSIS: 02 NEGATIVE FOR INTRAEPITHELIAL LESION OR MALIGNANCY. THIS SPECIMEN WAS RESCREENED PART OF OUR VICE PRESIDENT OF OPERATIONS PROGRAM. Specimen adequacy: 02 Satisfactory for evaluation. Performed by: Allyson Sanchez, Director Stars (ASCP) QC reviewed by: 02 Samara Mccartney, Director Stars (ASCP) . 02 Note: Note 02 The Pap smear is a screening test designed to aid in the detection of premalignant and malignant conditions of the uterine cervix. It is not a diagnostic procedure and should not be used as the sole means of detecting cervical cancer. Both false-positive and false-negative reports do occur. Test Methodology: Note 02 This liquid based ThinPrep(R) pap test was screened with the use of an image guided system. HPV Genotype Reflex Note 02 Criteria not met, HPV Genotype not performed. FLAG LEGEND: L-Low Normal,H-High Normal,LL-Alert Low,HH-Alert High <-Panic Low,>-Panic High,A-Abnormal,AA-Critical Abnormal Performed at: 02 [address] [facility] [address] [address] Kathryn Thornton MD, SPATULA-ALONE [facility] CBC AUTO DIFFon 04-06-2021 BASO # 0.0 103/ul Normal 0.0-0.1 [facility] Comment on above: Performed By: #### C BC #### [facility] [address] [address] [address] Ken Hernandez Basophils/100 WBC (Bld) 0.4 % Normal 0.2-2.0 [facility] Comment on above: Performed By: #### C BC #### [facility] [address] [place] [address] Dr. Ken Hernandez EO # 0.1 103/ul Normal 0.0-0.7 [facility] Comment on above: Performed By: #### C BC #### [facility] [address] [place] [address] Dr. Ken Hernandez Eosinophils/100 WBC (Bld) 1.2 % Normal 0.9-7.0 [facility] Comment on above: Performed By: #### C BC #### [facility] [address] [address] [address] Ken Hernandez Erythrocyte distribution width (RBC) [Ratio] 13.2 % Normal 11.0-15.0 [facility] Comment on above: Performed By: #### C BC #### [facility] [address] [place] [address] Dr. Ken Hernandez Hematocrit (Bld) [Volume fraction] 34.6 % Critically low 36.0-48.0 [facility] Comment on above: Performed By: #### C BC #### [facility] [address] [place] [address] Dr. Ken Hernandez Hemoglobin (Bld) [Mass/Vol] 11.6 g/dL Critically low 12.0-16.0 [facility] Comment on above: Performed By: #### C BC #### [facility] [address] [place] [address] Dr. Ken Hernandez IG # 0.03 10e3/ul Normal 0.00-0.03 [facility] Comment on above: Performed By: #### C BC #### [facility] [address] [place] [address] Dr. Ken Hernandez IG % 0.3 % Normal 0.0-0.5 [facility] Comment on above: Performed By: #### C BC #### [facility] [address] [place] [address] Dr. Ken Hernandez LYMPH # 2.8 103/ul Normal 1.2-3.8 [facility] Comment on above: Performed By: #### C BC #### [facility] [address] [place] [address] Dr. Ken Hernandez Lymphocytes/100 WBC (Bld) 26.1 % Normal 20.5-60.0 [facility] Comment on above: Performed By: #### C BC #### [facility] [address] [place] [address] Dr. Ken Hernandez MANUAL DIFF REQ NO Normal [facility] Comment on above: Performed By: #### C BC #### [facility] [address] [place] [address] Dr. Ken Hernandez MCH (RBC) [Entitic mass] 31.3 pg Normal 26.7-34.0 [facility] Comment on above: Performed By: #### C BC #### [facility] [address] [place] [address] Dr. Ken Hernandez MCHC (RBC) [Mass/Vol] 33.5 g/dL Normal 29.9-35.2 [facility] Comment on above: Performed By: #### C BC #### [facility] [address] [address] [address] Ken Hernandez MCV (RBC) [Entitic vol] 93.3 fL Normal 81.0-99.0 [facility] Comment on above: Performed By: #### C BC #### [facility] [address] [address] [address] Ken Hernandez MONO # 0.7 103/ul Normal 0.3-0.8 [facility] Comment on above: Performed By: #### C BC #### [facility] [address] [place] [address] Dr. Ken Hernandez Monocytes/100 WBC (Bld) 6.6 % Normal 1.7-12.0 [facility] Comment on above: Performed By: #### C BC #### [facility] [address] [place] [address] Dr. Ken Hernandez NEUT # 7.0 103/ul Critically high 1.4-6.5 [facility] Comment on above: Performed By: #### C BC #### [facility] [address] [place] [address] Dr. Ken Hernandez Neutrophils/100 WBC (Bld) 65.4 % Normal 43.0-75.0 [facility] Comment on above: Performed By: #### C BC #### [facility] [address] [place] [address] Dr. Ken Hernandez Platelet mean volume (Bld) [Entitic vol] 9.7 fL Normal 9.5-13.5 [facility] Comment on above: Performed By: #### C BC #### [facility] [address] [address] [address] Ken Hernandez PLT 244 103/ul Normal 150-450 [facility] Comment on above: Performed By: #### C BC #### [facility] [address] [place] [address] Dr. Ken Hernandez RBC 3.71 106/ul Critically low 4.20-5.40 [facility] Comment on above: Performed By: #### C BC #### [facility] [address] [address] [address] Ken Hernandez WBC 10.7 103/ul Normal 4.0-11.0 [facility] Comment on above: Performed By: #### C BC #### [facility] [address] [address] [address] Ken Hernandez BUNon 04-05-2021 Urea nitrogen [Mass/Vol] 6.0 mg/dL Critically low 7.0-17.0 [facility] Comment on above: Performed By: #### C DEDE MEADE #### [facility] [address] [place] [address] Dr. Ken Hernandez CBC AUTO DIFFon 04-05-2021 BASO # 0.0 103/ul Normal 0.0-0.1 [facility] Comment on above: Performed By: #### C BC ####[facility] [address] [address]DrBear Hernandez Basophils/100 WBC (Bld) 0.2 % Normal 0.2-2.0 [facility] Comment on above: Performed By: #### C BC ####[facility] [address] [address]Dr. Ken Hernandez EO # 0.0 103/ul Normal 0.0-0.7 [facility] Comment on above: Performed By: #### C BC ####[facility] [address] [address]Dr. Ken Hernandez Eosinophils/100 WBC (Bld) 0.1 % Critically low 0.9-7.0 [facility] Comment on above: Performed By: #### C BC ####[facility] [address] [address]DrBear Hernandez Erythrocyte distribution width (RBC) [Ratio] 12.8 % Normal 11.0-15.0 [facility] Comment on above: Performed By: #### C BC ####[facility] [address] [address]Dr. Ken Hernandez Hematocrit (Bld) [Volume fraction] 35.4 % Critically low 36.0-48.0 [facility] Comment on above: Performed By: #### C BC ####[facility] [address] [address]Dr. Ken Hernandez Hemoglobin (Bld) [Mass/Vol] 12.0 g/dL Normal 12.0-16.0 [facility] Comment on above: Performed By: #### C BC ####[facility] [address] [address]Dr. Ken Hernandez IG # 0.10 10e3/ul Critically high 0.00-0.03 [facility] Comment on above: Performed By: #### C BC ####[facility] [address] [place], [place] [address]Dr. Ken Hernandez IG % 0.5 % Normal 0.0-0.5 [facility] Comment on above: Performed By: #### C BC ####[facility] [address] [place], [place] [address]Dr. Ken Hernandez LYMPH # 2.8 103/ul Normal 1.2-3.8 [facility] Comment on above: Performed By: #### C BC ####[facility] [address] [address]Dr. Ken Hernandez Lymphocytes/100 WBC (Bld) 12.9 % Critically low 20.5-60.0 [facility] Comment on above: Performed By: #### C BC ####[facility] [address] [address]Dr. Ken Hernandez MANUAL DIFF REQ NO Normal [facility] Comment on above: Performed By: #### C BC ####[facility] [address] [place], [place] [address]Dr. Ken Hernandez MCH (RBC) [Entitic mass] 31.1 pg Normal 26.7-34.0 [facility] Comment on above: Performed By: #### C BC ####[facility] [address] [id number]. Ken Hernandez MCHC (RBC) [Mass/Vol] 33.9 g/dL Normal 29.9-35.2 [facility] Comment on above: Performed By: #### C BC ####[facility] [address] [id number]. Ken Hernandez MCV (RBC) [Entitic vol] 91.7 fL Normal 81.0-99.0 [facility] Comment on above: Performed By: #### C BC ####[facility] [address] [id number]. Ken Hernandez MONO # 1.3 103/ul Critically high 0.3-0.8 [facility] Comment on above: Performed By: #### C BC ####[facility] [address] [place], [place] [address]Dr. Brimaria dolores Hernandez Monocytes/100 WBC (Bld) 6.0 % Normal 1.7-12.0 [facility] Comment on above: Performed By: #### C BC ####[facility] [address] [place], [place] [address]Dr. Ken Hernandez NEUT # 17.2 103/ul Critically high 1.4-6.5 [facility] Comment on above: Performed By: #### C BC ####[facility] [address] [id number]. rBimaria dolores Hernandez Neutrophils/100 WBC (Bld) 80.3 % Critically high 43.0-75.0 [facility] Comment on above: Performed By: #### C BC ####[facility] [address] [id number]. Ken Hernandez Platelet mean volume (Bld) [Entitic vol] 9.7 fL Normal 9.5-13.5 [facility] Comment on above: Performed By: #### C BC ####[facility] [address] [id number]. Ken Hernandez PLT 263 103/ul Normal 150-450 [facility] Comment on above: Performed By: #### C BC ####[facility] [address] [id number]. Ken Hernandez RBC 3.86 106/ul Critically low 4.20-5.40 [facility] Comment on above: Performed By: #### C BC ####[facility] [address] [address]DrBear Hernandez WBC 21.4 103/ul Critically high 4.0-11.0 [facility] Comment on above: Performed By: #### C BC ####[facility] [address] [address]Dr. Ken Hernandez CREATININEon 04-05-2021 Creatinine [Mass/Vol] 0.66 mg/dL Normal 0.52-1.04 [facility] Comment on above: Performed By: #### C DESHAUN, BUN #### [facility] [address] [address] [address] Ken Hernandez EGFR-AF CAMBODIAN >60 Normal >=60 [facility] Comment on above: Performed By: #### C DESHAUN, BUN #### [facility] [address] [address] [address] Ken Hernandez EGFR-NON AF CAMBODIAN >60 Normal >=60 [facility] Comment on above: Performed By: #### C DESHAUN, BUN #### [facility] [address] [id number] Dr[address] Ken Hernandez CBC AUTO DIFFon 04-04-2021 BASO # 0.1 103/ul Normal 0.0-0.1 [facility] Comment on above: Performed By: #### C BC ####[facility] [address] [place] [address]DrBear Hernandez Basophils/100 WBC (Bld) 0.6 % Normal 0.2-2.0 [facility] Comment on above: Performed By: #### C BC ####[facility] [address] [place] [id number] Hernandez EO # 0.1 103/ul Normal 0.0-0.7 [facility] Comment on above: Performed By: #### C BC ####[facility] Roh[address]rrrvlm[address] [place] [id number]. Ken Hernandez Eosinophils/100 WBC (Bld) 1.1 % Normal 0.9-7.0 [facility] Comment on above: Performed By: #### C BC ####[facility] Kaqeq[address]qd33[address] [place] [id number]. Ken Hernandez Erythrocyte distribution width (RBC) [Ratio] 12.7 % Normal 11.0-15.0 [facility] Comment on above: Performed By: #### C BC ####[facility] [address] [place], [place] [id number]. Ken Hernandez Hematocrit (Bld) [Volume fraction] 40.8 % Normal 36.0-48.0 [facility] Comment on above: Performed By: #### C BC ####[facility] [address] [place], [place] [address]Dr. Ken Hernandez Hemoglobin (Bld) [Mass/Vol] 13.8 g/dL Normal 12.0-16.0 [facility] Comment on above: Performed By: #### C BC ####[facility] Bcjorqem[address] [place], [place] [address]Dr. Ken Hernandez IG # 0.03 10e3/ul Normal 0.00-0.03 [facility] Comment on above: Performed By: #### C BC ####[facility] L[address] [place], [place] [address]Dr. Ken Hernandez IG % 0.3 % Normal 0.0-0.5 [facility] Comment on above: Performed By: #### C BC ####[facility] [address]er[address] [place], [place] [address]Dr. Ken Hernandez LYMPH # 2.1 103/ul Normal 1.2-3.8 [facility] Comment on above: Performed By: #### C BC ####[facility] Ulzyxmt[address] [place], [place] [address]Dr. Ken Hernandez Lymphocytes/100 WBC (Bld) 23.0 % Normal 20.5-60.0 [facility] Comment on above: Performed By: #### C BC ####[facility] [address]wbw[address] [place] [address]Dr. Ken Hernandez MANUAL DIFF REQ NO Normal [facility] Comment on above: Performed By: #### C BC ####[facility] Agqcaxcgzz2249 [place] [id number]. Ken Hernandez MCH (RBC) [Entitic mass] 30.9 pg Normal 26.7-34.0 [facility] Comment on above: Performed By: #### C BC ####[facility] S[address] [place], [place] [address]Dr. Ken Hernandez MCHC (RBC) [Mass/Vol] 33.8 g/dL Normal 29.9-35.2 [facility] Comment on above: Performed By: #### C BC ####[facility] [address]ugs[address] [place], [place] [address]Dr. Ken Hernandez MCV (RBC) [Entitic vol] 91.3 fL Normal 81.0-99.0 [facility] Comment on above: Performed By: #### C BC ####[facility] [address] [place], [place] [address]Dr. Ken Hernandez MONO # 0.6 103/ul Normal 0.3-0.8 [facility] Comment on above: Performed By: #### C BC ####[facility] Pqthelxcok[address] [place], [place] [address]Dr. Ken David Monocytes/100 WBC (Bld) 6.7 % Normal 1.7-12.0 [facility] Comment on above: Performed By: #### C BC ####[facility] H[address]jxtxjud[address] [place], [place] [address]Dr. Ken Hernandez NEUT # 6.2 103/ul Normal 1.4-6.5 [facility] Comment on above: Performed By: #### C BC ####[facility] K[address]wygqeb[address] [place], [place] [address]Dr. Ken Hernandez Neutrophils/100 WBC (Bld) 68.3 % Normal 43.0-75.0 [facility] Comment on above: Performed By: #### C BC ####[facility] [address] [place], [place] [address]Kn. Ken Hernandez Platelet mean volume (Bld) [Entitic vol] 9.5 fL Normal 9.5-13.5 [facility] Comment on above: Performed By: #### C BC ####[facility] [address] [place], [place] [address]Ut. Ken David PLT 326 103/ul Normal 150-450 [facility] Comment on above: Performed By: #### C BC ####[facility] Fcudxvyczh[address] [place], [place] [address]Se. Brimaria dolores David RBC 4.47 106/ul Normal 4.20-5.40 [facility] Comment on above: Performed By: #### C BC ####[facility] [address] [place] [id number]. Ken Hernandez WBC 9.1 103/ul Normal 4.0-11.0 [facility] Comment on above: Performed By: #### C BC ####[facility] [address] [place], [place] [address]Vx. Ken Hernandez URon 04-04-2021 , QUAL Negative Normal NEGATIVE [facility] Comment on above: Performed By: #### P REGU #### [facility] [address] [place], [place] [address] Dr. Ken Hernnadez TYPE AND SCREENon 03-31-2021 TYPE AND SCREEN Negative Normal [facility] Comment on above: Performed By: #### T NS #### [facility] [address] [place] [id number] Ken Hernandez Covid-19 PCR (CVDTBH)on SARS-CoV-2 (COVID-19) RNA SAVANNA+probe Ql (Unsp spec) Detected Critically abnormal NOT DETECTED [facility] Comment on above: Result Comment: This test is not yet approved or cleared by the [place] FDA. When there are no FDA-approved or cleared tests available, and other criteria are met, FDA can make tests available under an emergency access mechanism called an Emergency Use Authorization (EUA). The EUA for this test is supported by the [place] of Health and Human Service's (HHS's) declaration that circumstances exist to justify the emergency use of in vitro diagnostics for the detection and/or diagnosis of the virus that causes COVID-19. This EUA will remain in effect (meaning this test can be used) for the duration of the COVID-19 declaration justifying emergency of IVDs, unless it is terminated or revoked by FDA (after which the test may no longer be used). Performed By: #### C VDTB #### [facility] [address] [place] [address] Dr. Ken Hernandez INFLUENZA A AND B AGon 02-22 [facility] SEE BELOW Normal [facility] Comment on above: Result Comment: Nega tive for Flu A protein angiten. Infection due to Flu A cannot be ruled out. Flu A angiten in the sample may be below the detection limit of the test. Performed By: #### I NFLUAB #### [facility] [address] [place] [address] Dr. Ken [facility] Normal [facility] Comment on above: Result Comment: Nega tive for Flu B protein antigen. Infection due to Flu B cannot be ruled out. Flu B antigen in the sample may be below the detection limit of the test. Performed By: #### I NFLUAB #### [facility] [address] [place] [address] Dr. Ken Hernandez INFLUENZA A AG Negative Normal NEGATIVE SEE COMMENT [facility] Comment on above: Performed By: #### I NFLUAB #### [facility] [address] [place] [address] Dr. Ken Hernandez INFLUENZA B AG Negative Normal NEGATIVE SEE COMMENT [facility] Comment on above: Performed By: #### I NFLUAB #### [facility] [address] [place] [address] Dr. Ken Hernandez INTERNAL CONTROLS Within Normal Limits Normal Wi thin Normal Limits [facility] Comment on above: Performed By: #### I NFLUAB #### [facility] [address] [place] [address] Dr. Ken Hernandez PAP ACOG PANEL 2: 30 to 65on 01-20-2021 . . Normal [facility] Comment on above: Result Comment: Perf ormed at: WB Performed By: #### [id number] #### [facility] [address] [place] [address] Dr. Ken Hernandez DIAGNOSIS: Comment Normal [facility] Comment on above: Result Comment: NEGA TIVE FOR INTRAEPITHELIAL LESION OR MALIGNANCY. Performed at: WB Performed By: #### [id number] #### [facility] [address] [place] [address] [address] Ken Hernandez HPV Aptima Negative Normal Negative [facility] Comment on above: Result Comment: This nucleic acid amplification test detects fourteen high-risk HPV types (16,18,31,33,35,39,45,51,52,56,58,59,66,68) without differentiation. Performed at: =G Performed By: #### 4 [id number] #### [facility] [address] [place] [address] Dr. Ken Hernandez Methodology: Comment [facility] Comment on above: Result Comment: This liquid based ThinPrep(R) pap test was screened with the use of an image guided system. Performed at: WB Performed By: #### 4 [id number] #### [facility] [address] [place] [address] Dr. Ken Hernandez Note: Comment Normal [facility] Comment on above: Result Comment: The Pap smear is a screening test designed to aid in the detection of premalignant and malignant conditions of the uterine cervix. It is not a diagnostic procedure and should not be used as the sole means of detecting cervical cancer. Both false-positive and false-negative reports do occur. . Performed at: WB Performed By: #### 4 [id number] #### [facility] [address] [place] [address] Dr. Ken Hernandez Performed by: Comment Normal [facility] Comment on above: Result Comment: Erum Chapin Product Managent Intern (ASCP) Performed at: WB Performed By: #### [id number] #### [facility] [address] [place] [address] Dr. Ken Hernandez Specimen adequacy: Comment Normal [facility] Comment on above: Result Comment: Sati sfactory for evaluation. Endocervical and/or squamous metaplastic cells (endocervical component) are present. Performed at: WB Performed By: #### 4 [id number] #### [facility] [address] [place], [place] [address] Dr. Ken Hernandez Age Gdln ACOG Testing 30-65 Normal [facility] Comment on above: Performed By: #### [id number] #### [facility] [address] [place], [place] [address] Dr. Ken Hernandez MG MAMM SCREEN 3D EDGAR CADon 01-17-2021 MG MAMM SCREEN 3D EDGAR CAD Patient: MARY PEDROZA Exam Date: 01/17/2021 : 1975 Gender:F Ordering : DR TOY AGUIRRE . Admission #: [id number] Family : Order #: [id number] CLICK HERE TO VIEW EXAM RADIOLOGY REPORT PROCEDURE: MAMMOGRAM SCREENING 3D BILATERAL CAD COMPARISON: MG MAMM SCREEN EDGAR W CAD, 07/02/2019. INDICATIONS: Screening mammography Calculator Name NCI Breast Cancer Risk Assessment Tool 5 Year Breast Cancer Risk Not Reported. Lifetime Breast Cancer Risk Not Reported. Personal Breast Cancer No Personal Ovarian Cancer No Treatments None Family Cancers None LOCATION: [facility] BREAST COMPOSITION: Scattered areas fibroglandular density. FINDINGS: DIAGNOSTIC CATEGORY 1--NEGATIVE ASSESSMENT. RIGHT BREAST: No significant suspicious finding. No significant change has occurred. LEFT BREAST: No significant suspicious finding. No significant change has occurred. RECOMMENDATIONS: ROUTINE MAMMOGRAM AND CLINICAL EVALUATION IN 12 MONTHS. PLEASE NOTE: A NORMAL MAMMOGRAM DOES NOT EXCLUDE THE POSSIBILITY OF BREAST CANCER. A CLINICALLY SUSPICIOUS PALPABLE LUMP SHOULD BE BIOPSIED. Dictated by: Devang Mendez M.D. on 01/17/2021 at 16:03 Approved by: Devang Mendez M.D. on 01/17/2021 at 16:06 Normal [facility] US PELVIS AND TRANSVAGon US PELVIS AND TRANSVAG EXAMINATION: US PELVIS AND TRANSVAG HISTORY: Pelvic and perineal pain COMPARISON: No relevant comparison available. FINDINGS: The uterus measures 7.3 x 5.6 x 4.2 cm, anteflexed. Uterine myometrium is heterogeneous containing punctate areas of hyperechogenicity likely representing calcification with no focal mass. Multiple areas of anechoic echogenicity in the cervix largest measuring 1.6 x 1.4 x 1.2 cm, nabothian cysts are suspected. The endometrium measures 6 mm, normal. The right ovary measures 3.6 x 2.1 x 2.2 cm. Normal resistive index of 0.49. Complex thick-walled cystic area with central hypoechoic echogenicity and the vascularity 1.3 x 1.1 x 1.1. The left ovary measures 3.5 x 2.2 x 1.8 cm. Normal resistive index of 0.59. IMPRESSION: Heterogeneous uterine myometrium with calcifications, nonspecific, consider leiomyomatosis Multiple nabothian cysts 1.3 cm right ovarian cystic lesion, favor a collapsing functional cyst Electronically authenticated by: RUPERT MCKEON Date: 2020-11-12 10:34 Normal [facility] Vital Signs Date Time Vital Sign Value Performing Clinician Doroni dungy 09-02-2024 08:44-0400 Body height 157.5 cm Toy CarlaJag.ag Work Phone: [facility] 09-02-2024 08:44-0400 Body mass index (BMI) [Ratio] 36.58 kg/m2 Toy Carla [employer] Work Phone: [facility] 09-02-2024 08:44-0400 Body weight 90.72 kg [employer] Phone: [facility] 09-02-2024 08:44-0400 Diastolic blood pressure 70 mm[Hg] Toy Carla DO Work Phone: [facility] 09-02-2024 08:44-0400 Systolic blood pressure 118 mm[Hg] Toy Carla [employer] Work Phone: [facility] Healthcare Encounters Encounter Date Encounter Type Care Provider Facility Start: 10-15-2024 End: 10-15-2024 ambulatory Toy AGUIRRE Facility:[facility] Start: 10-15-2024 End: 10-15-2024 Patient encounter procedure Armaan ROUSE [facility] General Surgery Levels Start: 09-25-2024 End: 09-25-2024 Clinisync Result Encounter Toy Carla DO Work Phone: [facility] Unsolicited Start: 09-25-2024 End: 09-25-2024 Clinisync Result Encounter Toy Carla DO Work Phone: [facility] Unsolicited Start: 09-04-2024 ambulatory Toy AGUIRRE Facility:[facility] Start: 09-02-2024 End: 09-02-2024 Bamboo flowsheet Toy Carla DO Work Phone: [facility] Start: 09-02-2024 End: 09-05-2024 Bamboo flowsheet Toy Carla DO Work Phone: [facility] Start: 09-02-2024 End: 09-05-2024 Clinisync Result Encounter Toy Carla DO Work Phone: [facility] External [facility] Unsolicited Start: 09-02-2024 End: 09-02-2024 ambulatory TOY CARLA Not Available Start: 09-02-2024 End: 09-02-2024 Patient encounter procedure Toy Carla DO Work Phone: [facility] Work Phone: Start: 09-02-2024 End: 09-02-2024 Periodic preventive med est patient 40-64yrs Toy Carla DO Work Phone: [facility] Comment on above: Well woman exam with routine gynecological exam; Breast cancer screening by mammogram Start: 04-05-2021 Encounter for preprocedural laboratory examination DR TOY AGUIRRE [facility] Start: 04-04-2021 End: 04-06-2021 Evaluation and management of inpatient DR TOY AGUIRRE Facility:[facility] Start: 03-31-2021 End: 04-01-[address] TOY AGUIRRE Facility:[facility] Start: 03-31-2021 End: 04-01-2021 Encounter for preprocedural laboratory examination DR TOY AGUIRRE Facility:[facility] Start: 03-01-[address] TOY AGUIRRE Facility :[facility] Start: 02-22-2021 End: 02-22-[address] STACI JOSUE Facility:[facility] Start: 01-17-2021 End: 01-18-[address] TOY AGUIRRE Facility:[facility] Start: 11-12-2020 End: 11-13-[address] STACI JOSUE Facility:[facility] Procedures Date Procedure Procedure Detail Performing Clinician Start: 09-25-2024 MM TOMOSYNTHESIS SCR EENING BI Toy Carla DO Work Phone: Start: 09-25-2024 Mammography [employer]zi [employer] DO Work Phone: Start: 09-02-2024 IGP,APTIMA HPV,AGE GDLN [employer] DO Work Phone: Start: 09-02-2024 Microscopic observat ion [Identifier] in Cervix by Cyto stain [employer] DO Work Phone: Start: 04-04-2021 Resection of Bilater al Fallopian Tubes, Open Approach DR STACI JOSUE Start: 04-04-2021 Resection of Uterus, Open Approach DR STACI JOSUE Abdominal hysterectomy Alfred ROUSE Plan of Treatment Date Care Activity Detail Author Start: 09-03-2027 Screening for malignant neoplasm of cervix [facility] Start: 10-20-2024 Influenza vaccination Influenza Vacc ine (#1) [facility] Start: 09-02-2024 End: 11-03-2025 MG Breast - bilateral Screening Bilateral screening mammogram Imaging Routine Breast cancer screening by mammogram Expected: 09/02/2024 (Approximate), Expires: 11/03/2025 [facility] Work Phone: Comment on above: Expected: 09/02/2024 (Approximate), Expires: 11/03/2025 Start: 2015 Screening for malignant neoplasm of breast Mammogram [facility] Start: 07-12-2005 Screening for malignant neoplasm of cervix [facility] Start: 07-12-1996 Screening for malignant neoplasm of cervix Pap Smear [facility] Start: 1975 Screening for malignant neoplasm of colon [facility] THIN PREP TIS PAP AN D HR HPV DNA THIN PREP TIS PAP AND HR HPV DNA Pathology and Cytology Routine Well woman exam with routine gynecological exam Ordered: 09/02/2024 [facility] Comment on above: Ordered: 09/02/2024 Immunizations Immunization Date Immunization Notes Care Provider Ron martin 11-25-2020 SARS-CoV-2 (COVID-19 ) mRNA BNT-162b2 vaTRAKLOKL [facility] Comment on above: Result Comment: 2024: [id number] 11-02-2020 SARS-CoV-2 (COVID-19 ) mRNA BNT-162b2 [facility] Comment on above: Result Comment: 2024: [id number] Payers Date Payer Category Payer Private Health Insurance [id number] 2021 [employer] BCBS [id number] 1975 Unknown [id number] 1975 Unknown [id number] 1975 Unknown [id number] .[id number] 1975 Unknown [id number] .[id number] 1975 Unknown [id number] .[id number] 1975 Unknown [id number] .[id number] 1975 Unknown [id number] .[id number] 1975 Unknown [id number] .[id number] 1959 Unknown [id number] 1959 Unknown [id number] Social History Date Type Detail Facility Tobacco smoking stat [facility] Tobacco smoking consumption unknown [facility] Healthcare Start: 1975 Sex assigned at Not on file [facility] Healthcare Gender identity Not on file [facility] Start: 10-15-2024 Tobacco smoking status Ex-smoker (fi nding) [facility] Surgery Levels Tobacco smoking status Never [facility] Surgery Levels Sexual Orientation [facility] General Surgery Levels Start: 02-21-2010 Sex Female (finding) [facility] Clinical Note 10-15-2024 Note Date & Type Note Facility 10-15-2024 Note General Surgery Offi ce/Clinic Note Chief Complaint consultation for colonoscopy HPI Staff 49 year old female presents on consultation from Dr. Aguirre for screening colonoscopy. Denies abdominal or rectal pain. No rectal bleeding or change in bowel habits. Denies nausea, vomiting or unexplained weight loss. No previous colonoscopy. No known family history of colon cancer. History of Present Illness 49 yo female with h/o htn, GERD, referred for colorectal screening; denies change in bms or blood in stools, no abd complaints; Abd operations significant for abd hysterectomy; no previous colonoscopy; no asa or NSAID use; former smoker, quit 5 years ago; no fmhx of GI malignancy or IBD; no fmhx of GI malignancy or IBD. Review of Systems PHQ Score Initial Depression Screen Score: 0 SCORE ROS - Provider Constitutional: no fever, no sweats, no weight loss. Eyes: no glasses, no blurred vision, no visual loss. ENMT: no dentures, no hoarseness, no swallowing difficulties, no hearing loss, no ear infection(s), no nose bleeds. Cardiovascular: normal blood pressure, no chest pain, regular heartbeat, no heart murmur. Respiratory: no shortness of breath, no cough, no asthma, no wheezing. Gastrointestinal: no nausea, no vomiting, no diarrhea, no constipation, no blood in stool, no change in bowel habits, no abdominal pain, no hepatitis. Genitourinary: no kidney stones, no urine infection, no dysuria. Musculoskeletal: no pain, no weakness. Skin: no changing moles, no rash, no skin lumps. Neurologic: no seizures, no epilepsy, no headache. Psychiatric: no emotional or psychiatric problem. Heme/Lymph: no bleeding problems, no anemia, no blood clots, no transfusions. Allergy/Immunologic: no swollen lymph nodes/glands, no IV drug abuse. Other: Additional ROS info: Except as noted in the above Review of Systems and in the History of Present Illness, all other systems have been reviewed and are negative or noncontributory. Physical Exam Vitals & Measurements HR: 72(Peripheral) RR: 16 BP: 124/84 HT: 157.4 cm HT: 62 in WT: 87 kg WT: 191.802 lb BMI: 35.12 Respiratory: lungs CTA, respirations non labored. Cardiovascular: regular rate and rhythm, no murmur, no pedal edema or varicosities. Gastrointestinal: obese, soft, non distended, no tenderness, no masses, no palpable hernias, diastasis recti no, no hepatosplenomegaly; normal bs Musculoskeletal: normal gait, digits and nails without infection, nodes, cyanosis, clubbing. Skin: no rashes, no lesions, no ulcers, no subcutaneous nodules, induration. Psychiatric/Neuro: oriented to time, place, person, judgement normal, affect appropriate for age, insight intact, no focal deficits. Tests: , review of old records completed , Discussed surgical options, risks, and possible complications with patient. Assessment/Plan 1. Screening for malignant neoplasm of colon (Z12.11: Encounter for screening for malignant neoplasm of colon) plan colonoscopy under anesthesia, informed consent obtained. Follow-up No qualifying data available Problem List/Past Medical History Ongoing BMI 35.0-35.9,adult Class 3 obesity Essential hypertension Gastroesophageal reflux disease Screening for malignant neoplasm of colon Historical No qualifying data Procedure/Surgical History Abdominal hysterectomy. Medications spironolactone 50 mg Tab, 50 mg, Oral, Daily Allergies HYDROmorphone (Itching, Nausea) sulfa drugs (Itching) Social History Alcohol - Denies Alcohol Use, 06/09/2011 Never., 10/14/2024 Substance Abuse - Denies Substance Abuse, 06/09/2011 Never., 10/14/2024 Tobacco Former smoker, quit more than 30 days ago Tobacco Use:. Never Smokeless Tobacco Use:. Cigarettes, 0.5 per day. Started age 14.0 Years. Stopped age 44 Years., 10/15/2024 Family History Family history is negative Immunizations Vaccine Date Status Comments SARS-CoV-2 (COVID-19) mRNA BNT-162b2 vax 11/25/2020 Recorded 2024-09-18: [id number] SARS-CoV-2 (COVID-19) mRNA BNT-162b2 vax 11/02/2020 Recorded 2024-09-18: [id number] [facility] Comment on above: Result Comment: Elec tronically Signed By: ANTONY MANUEL, Armaan Todd.dee\Date and Time Signed: 10/15/24 13:50 EDT History of Present illness Narrative 09-02-2024 Madisyn Bell, BUFFER CHROME - 09/02/2024 8:30 AM EDT Note Date & Type Note Facility 09-02-2024 History of Presen t illness Narrative Reason for Appointment: Patient ID: Mary Pedroza is a 49 y.o. female who presents for Well Women Visit Patient presents today for Annual Exam. MEDICATIONS No current outpatient medications ALLERGIES Allergies Allergen Reactions Hydromorphone Other Reaction(s): Unknown Sulfa Antibiotics PROBLEMS Active Ambulatory Problems Diagnosis Date Noted No Active Ambulatory Problems Resolved Ambulatory Problems Diagnosis Date Noted No Resolved Ambulatory Problems No Additional Past Medical History HISTORY PAST MEDICAL HISTORY SOCIAL HISTORY History reviewed. No pertinent past medical history. Social History Tobacco Use Smoking status: Not on file Smokeless tobacco: Not on file Substance Use Topics Alcohol use: Not on file Drug use: Not on file FAMILY HISTORY No family history on file. SURGICAL HISTORY Past Surgical History: Procedure Laterality Date HYSTERECTOMY REVIEW OF SYSTEMS Review of Systems: Review of Systems Constitutional: Negative. HENT: Negative. Eyes: Negative. Respiratory: Negative. Cardiovascular: Negative. Gastrointestinal: Negative. Genitourinary: Negative. Musculoskeletal: Negative. Skin: Negative. Neurological: Negative. All other systems reviewed and are negative. Hematological: Negative. Endocrine: Negative. Allergic/Immunologic: Negative. OBJECTIVE Objective: Physical Exam Constitutional: Appearance: Normal appearance. She is well-developed. Genitourinary: Vulva normal. Vaginal cuff intact. Cervix is absent. Uterus is absent. Cardiovascular: Rate and Rhythm: Normal rate and regular rhythm. Abdominal: General: Bowel sounds are normal. There is no distension. Palpations: Abdomen is soft. Tenderness: There is no abdominal tenderness. There is no guarding or rebound. Musculoskeletal: General: No swelling. Normal range of motion. Right lower leg: No edema. Left lower leg: No edema. Neurological: Mental Status: She is alert and oriented to person, place, and time. Skin: General: Skin is warm and dry. Psychiatric: Mood and Affect: Mood normal. Behavior: Behavior normal. Vitals and nursing note reviewed. Exam conducted with a cabbage salter present. Vitals: Estimated body mass index is 36.58 kg/m as calculated from the following: Height as of this encounter: 5' 2 . Weight as of this encounter: 200 lb. BP: 118/70 No LMP recorded. Patient has had a hysterectomy. ASSESSMENT & PLAN ICD-10-CM 1. Well woman exam with routine gynecological exam Z01.419 THIN PREP TIS PAP AND HR HPV DNA 2. Breast cancer screening by mammogram Z12.31 Bilateral screening mammogram Bilateral screening mammogram Orders Placed This Encounter Procedures Bilateral screening mammogram Annual Wellness Exam (Post Hysterectomy): Patient presents today for routine annual exam. Patient states she has no current complaints. Patients vitals were reviewed and within normal limits. Growth and development is noted to be appropriate for age. Menstrual history is noted to be obsolete due to patients history of hysterectomy. No mental health concerns was expressed. Pt referred to Dr Rouse for screening colonoscopy. Pap Smear: Speculum was inserted into the vagina and pap was obtained without difficulty. HPV testing was performed per guidelines. Patient was advised that pap results could take anywhere from 7 to 10 days to receive and our office will reach out to the patient with those once we have them. Patient can also view results via [facility]. I reinforced importance of condom use for STI prevention. Patient declined cultures to be performed with today's visit. Breast Exam: Upon examination, clinical breast exam was noted to be normal. Patient was counseled on breast self-awareness, including the importance of knowing what is normal for her own breasts and promptly reporting any changes such as new lumps, skin dimpling, nipple discharge, or pain. Screening mammogram recommended annually beginning at age 40 or earlier if risk factors are present. Discussed signs and symptoms of breast cancer and when to seek medical attention. Answered all patient questions. Follow Up: Patient is to return to our office in one year for annual exam unless needed otherwise. Documented by Madisyn Bell LPN on behalf of: Toy Aguirre DO documented in this encounter [facility] Clinical Note 04-04-2021 Note Date & Type Note Facility 04-04-2021 Note [facility] [place], [place] NAME: MARY PEDROZA DATE OF : MEDICAL REC#: [id number] FACSIMILE MACHINE OPERATOR: [id number] [facility], TRANSADMIT DATE: 04/04/2021 06:17:00 CAMPUS EXECUTIVE DIRECTOR DATE: 04/14/2021 07:00 DICTATING PHYSICIAN: TOY AGUIRRE DICTATION DATE: 04/12/2021 21:00 OPERATIVE NOTE PROCEDURE: Total abdominal hysterectomy, bilateral salpingectomy with cystoscopy PREOPERATIVE DIAGNOSIS: Menorrhagia, dysmenorrhea, dyspareunia as well as failed ablation. POSTOPERATIVE DIAGNOSIS: Same as above. SURGEON: Toy Aguirre D.O. METAL DEALER: KIMBERLEE Arreloa URINE OUTPUT: Yellow and clear. ESTIMATED BLOOD LOSS: 150 mL. SPECIMEN: Uterus and tubes. FINDINGS: Normal appearing ovaries, uterus and tubes. ANESTHESIA: General. PROCEDURE: Patient was taken back to the Operating Room where she was given general anesthesia without difficulty. She was then prepped and draped in the normal sterile fashion. A Pfannenstiel skin incision was then made 2 cm above the symphysis and pubis and carried down to underlying rectus fascia using a Bovie. The fascia was incised in the midline and extended bilaterally using Vergara scissors. Two Brent clamps were placed on the superior aspect of the fascia and dissected off the underlying rectus muscle. The same was performed on the inferior aspect as well. The muscle was then in the midline. The peritoneum was identified and entered bluntly. Peritoneum was then extended superiorly and inferiorly with good visualization of the bladder. An O'Pascal- O-Femi retractor was placed into the patient's abdomen. The bowel was packed away with moist laparotomy sponges and the bladder blade was inserted. A Leahey tenaculum was placed on the patient's uterus and used for retraction. LigaSure apparatus was then used to come across the uteroovarian ligament and mesosalpingx on the patient's right side which was then cauterized and transected. This was carried down serially through the broad ligament and across the round ligament. The bladder flap was then created using the Metzenbaum scissors, and the bladder was easily dissected off the patient's lower uterine segment. A curved Joseluis was placed across the uterine artery on the right side which was clamped, transected, and suture ligated using #0 Monocryl. This was performed on the contralateral side as well. The bladder was further dissected and a Zeppelin clamp was then placed across the uterosacral and cardinal ligaments. This was transected and suture ligated using #0 Monocryl. This was performed on the contralateral side as well. The uterus was then amputated using Russ scissors. The patient's cuff was closed using #0 PDS in a running locked fashion and this was transfixed to the ipsilateral uterosacral and cardinal ligaments. Excellent hemostasis was assured. The patient's abdomen was copiously irrigated using warm saline. Cystoscopy was performed. Bladder was intact. Efflux was noted from both ostia. Cystoscope was removed. After excellent hemostasis was assured, all instruments were removed from the patient's abdomen. The patient's peritoneum was closed using 3-0 Vicryl in a running fashion. The patient's fascia was closed using #0 Vicryl in a running fashion. The patient's skin was closed using ana. The patient tolerated the procedure well. Sponge, lap, and needle counts were correct times two. Patient taken to the Recovery Room in stable condition. Electronically Authenticated and Edited by: Toy Aguirre DO on 05/07/2021 10:29 PM EDT IFC Signed and Approved by: DR TOY AGUIRRE . 05/07/2021 22:29:00 [facility] Discharge summary note 04-04-2021 Note Date & Type Note Facility 04-04-2021 Note DISCHARGE SUMMARY PRIMARY DIAGNOSES: Menorrhagia, dysmenorrhea, dyspareunia, failed ablation. PROCEDURE: Total abdominal hysterectomy, bilateral salpingo-oophorectomy and cystoscopy. HOSPITAL COURSE: As expected. Please see chart for full details. LABORATORY DATA: Please see chart. DISCHARGE CONDITION: Stable. CONSULTATION: Anesthesia. DISCHARGE INSTRUCTIONS: 1.Diet: Regular. 2.Medications: a.Percocet 5/325 one to two p.o. every 4-6 hours p.r.n. pain. b.Motrin 800 one p.o. every 8 hours p.r.n. pain. 3.Follow-up in one week. Restrictions: Pelvic rest for 6 weeks. No heavy lifting. May drive when pain free and no longer on narcotics. IFC Signed and Approved by: DR TOY AGUIRRE . 05/07/2021 22:28:00 [facility] Evaluation + Plan note Note Date & Type Note Facility Evaluation + Plan note No data available for this section [facility] Evaluation note Note Date & Type Note Facility Evaluation note Diagnosis Well woman exam with routine gynecological exam Routine gynecological examination Breast cancer screening by mammogram documented in this encounter [facility] Discharge instructions Note Date & Type Note Facility Hospital Discharge instructions No data available for this section [facility] Progress note Note Date & Type Note Facility Progress note No data available for this section [facility] Summary Purpose Family History No Family History Records FoundNo Family History Records Found No data available for this section No Family History Records Found Advance Directives No Advanced Directives Records FoundNo Advanced Directives Records FoundNo Advanced Directives Records Found Additional Source Comments INFORMATION SOURCE (unrecogn ized section and content) DATE CREATED AUTHOR 05/12/2021 [facility] DATE CREATED AUTHOR AUTHOR'S ORGANIZ ATION 09/05/2024 [facility] EPIC DATE CREATED AUTHOR AUTHOR'S ORGANIZ ATION 10/16/2024 [facility] Reason for Visit (unrecogniz ed section and content) Reason Comments Well Women Visit Patient Care team informatio n (unrecognized section and content) Personnel Name: Staci Josue MD Address: [address] [place] [address] [employer]: FOR RECORDS PERTAINING TO PATIENTS WHO ARE OR HAVE BEEN ENROLLED IN A CHEMICAL DEPENDENCY/SUBSTANCEABUSE PROGRAM, SOME INFORMATION MAY BE OMITTED. This clinical summary was aggregated from multiple sources. Caution should be exercised in using it in the provision of clinical care. This summary normalizes information from multiple sources, and as a consequence, information in this document may materially change the coding, format and clinical context of patient data. In addition, data may be omitted in some cases. CLINICAL DECISIONS SHOULD BE BASED ON THE PRIMARY CLINICAL RECORDS. [employer] provides no warranty or guarantee of the accuracy or completeness of information in this document.
== END 2024-11-11 09:43 | disposition home or self-care (01) ==
LOC: PST 09:42
PROVIDERS: PCP Family Medicine; Visit Provider Surgery
DX: Z01.818 Encounter for other preprocedural examination (principal); Z12.11 Encounter for screening for malignant neoplasm of colon

== ENCOUNTER 2024-11-26 06:34 | Day surgery (SDC) | payer BC, SELFPAY ==
--- NOTE | 2024-11-26 | OP_ITS ---
OPERATION DATE: 11/26/2024 PREOPERATIVE DIAGNOSIS: Colorectal screening. POSTOPERATIVE DIAGNOSIS: Normal colonoscopy. PROCEDURE: Colonoscopy to cecum. SURGEON: Armaan Rouse M.D. ANESTHESIA: Monitored anesthesia care. ESTIMATED BLOOD LOSS: Zero. INDICATIONS AND CONSENT: Patient is a 49-year-old female, presents for colorectal screening. Indications, risks, benefits, alternatives of proceeding with colonoscopy were explained extensively to the patient, including the risks of bleeding, colon perforation or anesthetic complications. All of her questions were answered. Informed consent was obtained. PROCEDURE: Patient brought to the operating room, placed in the left lateral decubitus position. Monitored anesthesia care was provided. Rectal exam was performed which showed no masses or blood. The scope was inserted into the anal canal. Under direct visualization was advanced. It was advanced to the cecum where cecal markings were clearly identified. There was noted to be a good prep. Upon withdrawal of the scope, mucosal surfaces were carefully examined. There were no mass lesions or polyps. No inflammatory changes or ulcerations. No significant diverticulosis. The scope was retroflexed in the anal canal. There was no significant hemorrhoidal disease. The scope was then withdrawn. Patient tolerated procedure well, was sent to recovery room in good condition. Follow up colonoscopy should be in 10 years. CC: Lyssa Iniguez
--- OUTSIDE RECORDS SUMMARY | 2024-11-26 06:37 | XMS_ITS | CCD ---
Author Organization [facility] Care Team Providers Care General Purchasing Agent Name Role Phone JOSELO, DR SMALL Admitting Unavailable JOSELO, DR SMALL Attending Unavailable JOSELO, DR SMALL Primary Care Unavailable JOSELO, DR SMALL Consulting Unavailable ARMADA, DR RUPERT Bowen Consulting Unavailable CARLA, DR [...] Attending Unavailable Staci Josue Primary Care Physician [phone] Toy AGUIRRE Referring Unavailable Armaan ROUSE Attending Unavailable Allergies Allergy Classification Reported Allergen(s) Allergy Type Date of Onset Reaction(s) Facility (2 sources) HYDROmorphone; Translations: [Dilaudid] Drug Allergy 5 [facility] Repository (1 source) Sulfonamides (Antibiotic) Drug allergy (disorder) 5 [facility] Repository (7 sources) HYDROmorphone; Translations: [hydromorphone] Drug Allergy Itching (finding), Nausea (finding) [facility] Work Phone: (4 sources) Sulfonamides (Antibiotic) Propensity to adverse reactions [facility] (2 sources) Sulfonamide; Translations: [sulfa drugs] Drug allergy Itching (finding) [facility] General Surgery [place] Medications Current Medications Medication Drug Class(es) Dates [...] signed up for this yet, please contact [employer] at [phone] to get signed up today. Language Information Language assistance services are available as needed. [facility] MM TOMOSYNTHESIS SCREENING B Ion 09-25-2024 [place] [address] Mammography Report Signed Patient: MARY PEDROZA MR#: [id number] : 1975 Acct:[id number] Age/Sex: 49 / F ADM Date: 09/25/24 Loc: MAMMO Attending Dr: Toy Aguirre D.O. Ordering Physician: Toy Aguirre D.O. Results: Date of Service: 09/25/24 Follow Up: Procedure(s): MM tomosynthesis screening BI Accession Number(s): [id number] cc: Toy Aguirre D.O.; Staci Josue M.D. Patient Name: MARY PEDROZA MR#: [id number] : 1975 Exam Date: 09/25/2024 Ordering Doctor: [...] Treatments None Family Cancers None LOCATION: [facility] BREAST COMPOSITION: There are scattered areas of [...] Signed By: 09/25/24 1334 DD/ 133 TD/TT: Technical Staff Engineer: [facility] Radiology, Radiologist, - 09/25/2024 [place] [address] Mammography Report Signed Patient: MARY PEDROZA MR#: [id number] : 1975 Acct:[id number] Age/Sex: 49 / F ADM Date: 09/25/24 Loc: MAMMO Attending Dr: Toy Aguirre D.O. Ordering Physician: Toy Aguirre D.O. Results: Date of Service: 09/25/24 Follow Up: Procedure(s): MM tomosynthesis screening BI Accession Number(s): [id number] cc: Toy Aguirre D.O.; Staci Josue M.D. Patient Name: MARY PEDROZA MR#: [id number] : 1975 Exam Date: 09/25/2024 Ordering Doctor: [...] Treatments None Family Cancers None LOCATION: [facility] BREAST COMPOSITION: There are scattered areas of [...] Signed By: 09/25/24 1334 DD/ 133 TD/TT: Technical Staff Engineer: [facility] Radiology Study observation (narrative) [facility] MM TOMOSYNTHESIS SCREENING B IOrdered By: Radiologist Radiology on 09-25-2024 [facility] [employer] Work Phone: IGP,APTIMA HPV,AGE GDLNon AGE GDLN ACOG TESTING Note . [facility] Comment on above: TESTS RESULT FLAG UN ITS REF RANGE LAB Clinician Provided Cytology Information Source.............[facility] No. of containers..01 ThinPrep Vial Age Algo ACOG Catrina... FLAG LEGEND: L-Low Normal,H-High Normal,LL-Alert Low,HH-Alert High <-Panic Low,>-Panic High,A-Abnormal,AA-Critical Abnormal Performed at: 01 =[address] [place] [address] Kathryn Thornton MD, HPV APTIMA Negative Negative [facility] Comment on above: This nucleic acid am plification test detects fourteen high- risk HPV types (16,18,31,33,35,39,45,51,52,56,58,59,66,68) without differentiation. Performed at: =[address] [id number] Circuit Recorder: Kathryn Thornton MD, Phone: [phone] Performed at: [address] [id number] Circuit Recorder: Kathryn Thornton MD, Phone: [phone] IGP, APTIMA HPV, RFX 16/18,[address] [facility] Comment on above: TESTS RESULT FLAG U NITS REF RANGE LAB DIAGNOSIS: 02 NEGATIVE FOR INTRAEPITHELIAL LESION OR MALIGNANCY. THIS SPECIMEN WAS RESCREENED PART OF OUR MILL ATTENDANT PROGRAM. Specimen adequacy: 02 Satisfactory for evaluation. Performed by: Allyson Sanchez, K 9 Handler/ Deputy (ASCP) QC reviewed by: 02 Samara Mccartney, K 9 Handler/ Deputy (ASCP) . 02 Note: Note 02 The [...] High,A-Abnormal,AA-Critical Abnormal Performed at: 02 [address] [facility] [address] [address] Kathryn Thornton MD, SPATULA-ALONE [facility] CBC AUTO DIFFon 04-06-2021 BASO # 0.0 103/ul Normal 0.0-0.1 [facility] Comment on above: Performed By: #### C BC #### [facility] [address] [address] [address] Ken Hernandez Basophils/100 WBC (Bld) 0.4 % Normal 0.2-2.0 [facility] Comment on above: Performed By: #### C BC #### [facility] [address] [place] [address] Dr. Ken Hernandez EO # 0.1 103/ul Normal 0.0-0.7 [facility] Comment on above: Performed By: #### C BC #### [facility] [address] [place] [address] Dr. Ken Hernandez Eosinophils/100 WBC (Bld) 1.2 % Normal 0.9-7.0 [facility] Comment on above: Performed By: #### C BC #### [facility] [address] [address] [address] Ken Hernandez Erythrocyte distribution width (RBC) [Ratio] 13.2 % Normal 11.0-15.0 [facility] Comment on above: Performed By: #### C BC #### [facility] [address] [place] [address] Dr. Ken Hernandez Hematocrit (Bld) [Volume fraction] 34.6 % Critically low 36.0-48.0 [facility] Comment on above: Performed By: #### C BC #### [facility] [address] [place] [address] Dr. Ken Hernandez Hemoglobin (Bld) [Mass/Vol] 11.6 g/dL Critically low 12.0-16.0 [facility] Comment on above: Performed By: #### C BC #### [facility] [address] [place] [address] Dr. Ken Hernandez IG # 0.03 10e3/ul Normal 0.00-0.03 [facility] Comment on above: Performed By: #### C BC #### [facility] [address] [place] [address] Dr. Ken Hernandez IG % 0.3 % Normal 0.0-0.5 [facility] Comment on above: Performed By: #### C BC #### [facility] [address] [place] [address] Dr. Ken Hernandez LYMPH # 2.8 103/ul Normal 1.2-3.8 [facility] Comment on above: Performed By: #### C BC #### [facility] [address] [place] [address] Dr. Ken Hernandez Lymphocytes/100 WBC (Bld) 26.1 % Normal 20.5-60.0 [facility] Comment on above: Performed By: #### C BC #### [facility] [address] [place] [address] Dr. Ken Hernandez MANUAL DIFF REQ NO Normal [facility] Comment on above: Performed By: #### C BC #### [facility] [address] [place] [address] Dr. Ken Hernandez MCH (RBC) [Entitic mass] 31.3 pg Normal 26.7-34.0 [facility] Comment on above: Performed By: #### C BC #### [facility] [address] [place] [address] Dr. Ken Hernandez MCHC (RBC) [Mass/Vol] 33.5 g/dL Normal 29.9-35.2 [facility] Comment on above: Performed By: #### C BC #### [facility] [address] [address] [address] Ken Hernandez MCV (RBC) [Entitic vol] 93.3 fL Normal 81.0-99.0 [facility] Comment on above: Performed By: #### C BC #### [facility] [address] [address] [address] Ken Hernandez MONO # 0.7 103/ul Normal 0.3-0.8 [facility] Comment on above: Performed By: #### C BC #### [facility] [address] [place] [address] Dr. Ken Hernandez Monocytes/100 WBC (Bld) 6.6 % Normal 1.7-12.0 [facility] Comment on above: Performed By: #### C BC #### [facility] [address] [place] [address] Dr. Ken Hernandez NEUT # 7.0 103/ul Critically high 1.4-6.5 [facility] Comment on above: Performed By: #### C BC #### [facility] [address] [place] [address] Dr. Ken Hernandez Neutrophils/100 WBC (Bld) 65.4 % Normal 43.0-75.0 [facility] Comment on above: Performed By: #### C BC #### [facility] [address] [place] [address] Dr. Ken Hernandez Platelet mean volume (Bld) [Entitic vol] 9.7 fL Normal 9.5-13.5 [facility] Comment on above: Performed By: #### C BC #### [facility] [address] [address] [address] Ken Hernandez PLT 244 103/ul Normal 150-450 [facility] Comment on above: Performed By: #### C BC #### [facility] [address] [place] [address] Dr. Ken Hernandez RBC 3.71 106/ul Critically low 4.20-5.40 [facility] Comment on above: Performed By: #### C BC #### [facility] [address] [address] [address] Ken Hernandez WBC 10.7 103/ul Normal 4.0-11.0 [facility] Comment on above: Performed By: #### C BC #### [facility] [address] [address] [address] Ken Hernandez BUNon 04-05-2021 Urea nitrogen [Mass/Vol] 6.0 mg/dL Critically low 7.0-17.0 [facility] Comment on above: Performed By: #### C DEDE MEADE #### [facility] [address] [place] [address] Dr. Ken Hernandez CBC AUTO DIFFon 04-05-2021 BASO # 0.0 103/ul Normal 0.0-0.1 [facility] Comment on above: Performed By: #### C BC ####[facility] [address] [address]DrBear Hernandez Basophils/100 WBC (Bld) 0.2 % Normal 0.2-2.0 [facility] Comment on above: Performed By: #### C BC ####[facility] [address] [address]Dr. Ken Hernandez EO # 0.0 103/ul Normal 0.0-0.7 [facility] Comment on above: Performed By: #### C BC ####[facility] [address] [address]Dr. Ken Hernandez Eosinophils/100 WBC (Bld) 0.1 % Critically low 0.9-7.0 [facility] Comment on above: Performed By: #### C BC ####[facility] [address] [address]DrBear Hernandez Erythrocyte distribution width (RBC) [Ratio] 12.8 % Normal 11.0-15.0 [facility] Comment on above: Performed By: #### C BC ####[facility] [address] [address]Dr. Ken Hernandez Hematocrit (Bld) [Volume fraction] 35.4 % Critically low 36.0-48.0 [facility] Comment on above: Performed By: #### C BC ####[facility] [address] [address]Dr. Ken Hernandez Hemoglobin (Bld) [Mass/Vol] 12.0 g/dL Normal 12.0-16.0 [facility] Comment on above: Performed By: #### C BC ####[facility] [address] [address]Dr. Ken Hernandez IG # 0.10 10e3/ul Critically high 0.00-0.03 [facility] Comment on above: Performed By: #### C BC ####[facility] [address] [place], [place] [address]Dr. Ken Hernandez IG % 0.5 % Normal 0.0-0.5 [facility] Comment on above: Performed By: #### C BC ####[facility] [address] [place], [place] [address]Dr. Ken Hernandez LYMPH # 2.8 103/ul Normal 1.2-3.8 [facility] Comment on above: Performed By: #### C BC ####[facility] [address] [address]Dr. Ken Hernandez Lymphocytes/100 WBC (Bld) 12.9 % Critically low 20.5-60.0 [facility] Comment on above: Performed By: #### C BC ####[facility] [address] [address]Dr. Ken Hernandez MANUAL DIFF REQ NO Normal [facility] Comment on above: Performed By: #### C BC ####[facility] [address] [place], [place] [address]Dr. Ken Hernandez MCH (RBC) [Entitic mass] 31.1 pg Normal 26.7-34.0 [facility] Comment on above: Performed By: #### C BC ####[facility] [address] [id number]. Ken Hernandez MCHC (RBC) [Mass/Vol] 33.9 g/dL Normal 29.9-35.2 [facility] Comment on above: Performed By: #### C BC ####[facility] [address] [address]Dr. Ken Hernandez MCV (RBC) [Entitic vol] 91.7 fL Normal 81.0-99.0 [facility] Comment on above: Performed By: #### C BC ####[facility] [address] [address]Dr. Ken Hernandez MONO # 1.3 103/ul Critically high 0.3-0.8 [facility] Comment on above: Performed By: #### C BC ####[facility] [address] [place], [place] [address]Dr. Brimaria dolores Hernandez Monocytes/100 WBC (Bld) 6.0 % Normal 1.7-12.0 [facility] Comment on above: Performed By: #### C BC ####[facility] [address] [place], [place] [address]Dr. Ken Hernandez NEUT # 17.2 103/ul Critically high 1.4-6.5 [facility] Comment on above: Performed By: #### C BC ####[facility] [address] [address]Dr. Brimaria dolores Hernandez Neutrophils/100 WBC (Bld) 80.3 % Critically high 43.0-75.0 [facility] Comment on above: Performed By: #### C BC ####[facility] [address] [address]Dr. Ken Hernandez Platelet mean volume (Bld) [Entitic vol] 9.7 fL Normal 9.5-13.5 [facility] Comment on above: Performed By: #### C BC ####[facility] [address] [address]Dr. Ken Hernandez PLT 263 103/ul Normal 150-450 [facility] Comment on above: Performed By: #### C BC ####[facility] [address] [address]Dr. Ken Hernandez RBC 3.86 106/ul Critically low 4.20-5.40 [facility] Comment on above: Performed By: #### C BC ####[facility] [address] [address]DrBear Hernandez WBC 21.4 103/ul Critically high 4.0-11.0 [facility] Comment on above: Performed By: #### C BC ####[facility] [address] [address]Dr. Ken Hernandez CREATININEon 04-05-2021 Creatinine [Mass/Vol] 0.66 mg/dL Normal 0.52-1.04 [facility] Comment on above: Performed By: #### C DESHAUN, BUN #### [facility] [address] [address] [address] Ken Hernandez EGFR-AF KOSOVAN >60 Normal >=60 [facility] Comment on above: Performed By: #### C DESHAUN, BUN #### [facility] [address] [address] [address] Ken Hernandez EGFR-NON AF KOSOVAN >60 Normal >=60 [facility] Comment on above: Performed By: #### C DESHAUN, BUN #### [facility] [address] [address] [address] Ken Hernandez CBC AUTO DIFFon 04-04-2021 BASO # 0.1 103/ul Normal 0.0-0.1 [facility] Comment on above: Performed By: #### C BC ####[facility] [address] [address]DrBear Hernandez Basophils/100 WBC (Bld) 0.6 % Normal 0.2-2.0 [facility] Comment on above: Performed By: #### C BC ####[facility] [address] [address]DrBear Hernandez EO # 0.1 103/ul Normal 0.0-0.7 [facility] Comment on above: Performed By: #### C BC ####[facility] [address] [address]Dr. Ken Hernandez Eosinophils/100 WBC (Bld) 1.1 % Normal 0.9-7.0 [facility] Comment on above: Performed By: #### C BC ####[facility] [address] [address]Dr. Ken Hernandez Erythrocyte distribution width (RBC) [Ratio] 12.7 % Normal 11.0-15.0 [facility] Comment on above: Performed By: #### C BC ####[facility] [address] [place], [place] [address]Dr. Ken Hernandez Hematocrit (Bld) [Volume fraction] 40.8 % Normal 36.0-48.0 [facility] Comment on above: Performed By: #### C BC ####[facility] [address] [place], [place] [address]Dr. Ken Hernandez Hemoglobin (Bld) [Mass/Vol] 13.8 g/dL Normal 12.0-16.0 [facility] Comment on above: Performed By: #### C BC ####[facility] [address] [place], [place] [address]Dr. Ken Hernandez IG # 0.03 10e3/ul Normal 0.00-0.03 [facility] Comment on above: Performed By: #### C BC ####[facility] [address] [place], [place] [address]Dr. Ken Hernandez IG % 0.3 % Normal 0.0-0.5 [facility] Comment on above: Performed By: #### C BC ####[facility] [address] [place], [place] [address]Dr. Ken Hernandez LYMPH # 2.1 103/ul Normal 1.2-3.8 [facility] Comment on above: Performed By: #### C BC ####[facility] [address] [place], [place] [address]Dr. Ken Hernandez Lymphocytes/100 WBC (Bld) 23.0 % Normal 20.5-60.0 [facility] Comment on above: Performed By: #### C BC ####[facility] [address] [address]Dr. Ken Hernandez MANUAL DIFF REQ NO Normal [facility] Comment on above: Performed By: #### C BC ####[facility] [address] [id number]. Ken Hernandez MCH (RBC) [Entitic mass] 30.9 pg Normal 26.7-34.0 [facility] Comment on above: Performed By: #### C BC ####[facility] [address] [place], [place] [address]Dr. Ken Hernandez MCHC (RBC) [Mass/Vol] 33.8 g/dL Normal 29.9-35.2 [facility] Comment on above: Performed By: #### C BC ####[facility] [address] [place], [place] [address]Dr. Ken Hernandez MCV (RBC) [Entitic vol] 91.3 fL Normal 81.0-99.0 [facility] Comment on above: Performed By: #### C BC ####[facility] [address] [place], [place] [address]Dr. Ken Hernandez MONO # 0.6 103/ul Normal 0.3-0.8 [facility] Comment on above: Performed By: #### C BC ####[facility] [address] [place], [place] [address]Dr. Ken David Monocytes/100 WBC (Bld) 6.7 % Normal 1.7-12.0 [facility] Comment on above: Performed By: #### C BC ####[facility] [address] [place], [place] [address]Dr. Ken Hernandez NEUT # 6.2 103/ul Normal 1.4-6.5 [facility] Comment on above: Performed By: #### C BC ####[facility] [address] [place], [place] [address]Dr. Ken Hernandez Neutrophils/100 WBC (Bld) 68.3 % Normal 43.0-75.0 [facility] Comment on above: Performed By: #### C BC ####[facility] [address] [place], [place] [address]Al. Ken Hernandez Platelet mean volume (Bld) [Entitic vol] 9.5 fL Normal 9.5-13.5 [facility] Comment on above: Performed By: #### C BC ####[facility] [address] [place], [place] [address]Ih. Ken David PLT 326 103/ul Normal 150-450 [facility] Comment on above: Performed By: #### C BC ####[facility] [address] [place], [place] [address]Ai. Brimaria dolores David RBC 4.47 106/ul Normal 4.20-5.40 [facility] Comment on above: Performed By: #### C BC ####[facility] [address] [id number]. Ken Hernandez WBC 9.1 103/ul Normal 4.0-11.0 [facility] Comment on above: Performed By: #### C BC ####[facility] [address] [place], [place] [address]Zu. Ken Hernandez URon 04-04-2021 , QUAL Negative Normal NEGATIVE [facility] Comment on above: Performed By: #### P REGU #### [facility] [address] [place], [place] [address] Dr. Ken Hernandez TYPE AND SCREENon 03-31-2021 TYPE AND SCREEN Negative Normal [facility] Comment on above: Performed By: #### T NS #### [facility] [address] [id number] Ken Hernandez Covid-19 PCR (CVDTBH)on SARS-CoV-2 (COVID-19) RNA SAVANNA+probe Ql (Unsp spec) Detected Critically abnormal NOT DETECTED [facility] Comment on above: Result Comment: This test is not yet approved or cleared by the [place] FDA. When there are no FDA-approved or cleared tests available, and other criteria are met, FDA can make tests available under an emergency access mechanism called an Emergency Use Authorization (EUA). The EUA for this test is supported by the [place] of Health and Human Service's (HHS's) declaration [...] used). Performed By: #### C VDTB #### [facility] [address] [place] [address] Dr. Ken Hernandez INFLUENZA A AND B AGon 02-22 [facility] SEE BELOW Normal [facility] Comment on above: Result Comment: Nega tive for Flu A protein angiten. Infection due to Flu A cannot be ruled out. Flu A angiten in the sample may be below the detection limit of the test. Performed By: #### I NFLUAB #### [facility] [address] [place] [address] Dr. Ken [facility] BELOW Normal [facility] Comment on above: Result Comment: Nega tive for Flu B protein antigen. Infection due to Flu B cannot be ruled out. Flu B antigen in the sample may be below the detection limit of the test. Performed By: #### I NFLUAB #### [facility] [address] [place] [address] Dr. Ken Hernandez INFLUENZA A AG Negative Normal NEGATIVE SEE COMMENT [facility] Comment on above: Performed By: #### I NFLUAB #### [facility] [address] [place] [address] Dr. Ken Hernandez INFLUENZA B AG Negative Normal NEGATIVE SEE COMMENT [facility] Comment on above: Performed By: #### I NFLUAB #### [facility] [address] [place] [address] Dr. eKn Hernandez INTERNAL CONTROLS Within Normal Limits Normal Wi thin Normal Limits [facility] Comment on above: Performed By: #### I NFLUAB #### [facility] [address] [place] [address] Dr. Ken Hernandez PAP ACOG PANEL 2: 30 to 65on 01-20-2021 . . Normal [facility] Comment on above: Result Comment: Perf ormed at: WB Performed By: #### [id number] #### [facility] [address] [place] [address] Dr. Ken Hernandez DIAGNOSIS: Comment Normal [facility] Comment on above: Result Comment: NEGA TIVE FOR INTRAEPITHELIAL LESION OR MALIGNANCY. Performed at: WB Performed By: #### [id number] #### [facility] [address] [address] [address] Ken Hernandez HPV Aptima Negative Normal Negative [facility] Comment on above: Result Comment: This nucleic acid amplification test detects fourteen high-risk HPV types (16,18,31,33,35,39,45,51,52,56,58,59,66,68) without differentiation. Performed at: =G Performed By: #### [id number] #### [facility] [address] [place] [address] Dr. Ken Hernandez Methodology: Comment [facility] Comment on above: Result Comment: This liquid based ThinPrep(R) pap test was screened with the use of an image guided system. Performed at: WB Performed By: #### [id number] #### [facility] [address] [place] [address] Dr. Ken Hernandez Note: Comment Normal [facility] Comment on above: Result Comment: The Pap smear is a screening test designed to aid in the detection of premalignant and malignant conditions of the uterine cervix. It is not a diagnostic procedure and should not be used as the sole means of detecting cervical cancer. Both false-positive and false-negative reports do occur. . Performed at: WB Performed By: #### [id number] #### [facility] [address] [place] [address] Dr. Ken Hernandez Performed by: Comment Normal [facility] Comment on above: Result Comment: Erum Chapin Embroidery Patternmaker (ASCP) Performed at: WB Performed By: #### [id number] #### [facility] [address] [place] [address] Dr. Ken Hernandez Specimen adequacy: Comment Normal [facility] Comment on above: Result Comment: Sati sfactory for evaluation. Endocervical and/or squamous metaplastic cells (endocervical component) are present. Performed at: WB Performed By: #### [id number] #### [facility] [address] [place], [place] [address] Dr. Ken Hernandez Age Gdln ACOG Testing 30-65 Normal [facility] Comment on above: Performed By: #### [id number] #### [facility] [address] [place], [place] [address] Dr. Ken Hernandez MG MAMM SCREEN 3D EDGAR CADon 01-17-2021 MG MAMM SCREEN 3D EDGAR CAD Patient: MARY PEDROZA Exam Date: 01/17/2021 : 1975 Gender:F Ordering : DR TOY AGUIRRE . Admission #: [id number] Family : Order #: [id number] CLICK HERE TO VIEW EXAM RADIOLOGY REPORT PROCEDURE: MAMMOGRAM SCREENING 3D BILATERAL CAD COMPARISON: MG MAMM SCREEN EDGAR W CAD, 07/02/2019. INDICATIONS: Screening mammography Calculator Name NCI Breast Cancer Risk Assessment Tool 5 Year Breast Cancer Risk Not Reported. Lifetime Breast Cancer Risk Not Reported. Personal Breast Cancer No Personal Ovarian Cancer No Treatments None Family Cancers None LOCATION: [facility] BREAST COMPOSITION: Scattered areas fibroglandular density. FINDINGS: [...] Mendez M.D. on 01/17/2021 at 16:06 Normal [facility] US PELVIS AND TRANSVAGon US PELVIS AND [...] by: RUPERT MCKEON Date: 2020-11-12 10:34 Normal [facility] Vital Signs Date Time Vital Sign Value Performing Clinician Doroni dungy 09-02-2024 08:44-0400 Body height 157.5 cm Toy CarlaItineris Work Phone: [facility] 09-02-2024 08:44-0400 Body mass index (BMI) [Ratio] 36.58 kg/m2 Toy Carla CYPHER Work Phone: [facility] 09-02-2024 08:44-0400 Body weight 90.72 kg Toy CarlaVoluBill Phone: [facility] 09-02-2024 08:44-0400 Diastolic blood pressure 70 mm[Hg] Toy Carla DO Work Phone: [facility] 09-02-2024 08:44-0400 Systolic blood pressure 118 mm[Hg] Toy Carla CYPHER Work Phone: [facility] Healthcare Encounters Encounter Date Encounter Type Care Provider Facility Start: 10-15-2024 End: 10-15-2024 ambulatory Toy AGUIRRE Facility:[facility] Start: 10-15-2024 End: 10-15-2024 Patient encounter procedure Armaan ROUSE [facility] [place] Start: 09-25-2024 End: 09-25-2024 Clinisync Result Encounter Toy Carla DO Work Phone: [facility] Unsolicited Start: 09-25-2024 End: 09-25-2024 Clinisync Result Encounter Toy Carla DO Work Phone: [facility] Unsolicited Start: 09-04-2024 ambulatory Toy AGUIRRE Facility:[facility] Start: 09-02-2024 End: 09-02-2024 Bamboo flowsheet Toy [...] preprocedural laboratory examination DR TOY AGUIRRE [facility] Start: 04-04-2021 End: 04-06-2021 Evaluation and management [...] DO Work Phone: Start: 09-25-2024 Mammography Toy Vend-a-Barzi o DO Work Phone: Start: 09-02-2024 IGP,APTIMA HPV,AGE GDLN Pantecho DO Work Phone: Start: 09-02-2024 Microscopic observat ion [Identifier] in Cervix by Cyto stain [employer] DO Work Phone: Start: 04-04-2021 Resection of Bilater al Fallopian Tubes, Open Approach DR STACI JOSUE Start: 04-04-2021 Resection of Uterus, Open Approach DR STACI JOSUE Abdominal hysterectomy Alfred ROUSE Plan of Treatment Date Care Activity Detail Author Start: 09-03-2027 Screening for malignant neoplasm of cervix [facility] Start: 10-20-2024 Influenza vaccination Influenza Vacc ine (#1) [facility] Start: 09-02-2024 End: 11-03-2025 MG Breast - bilateral Screening Bilateral screening mammogram Imaging Routine Breast cancer screening by mammogram Expected: 09/02/2024 (Approximate), Expires: 11/03/2025 [facility] Work Phone: Comment on above: Expected: 09/02/2024 (Approximate), Expires: 11/03/2025 Start: 2015 Screening for malignant neoplasm of breast Mammogram [facility] Start: 07-12-2005 Screening for malignant neoplasm of cervix [facility] Start: 07-12-1996 Screening for malignant neoplasm of cervix Pap Smear [facility] Start: 1975 Screening for malignant neoplasm of colon [facility] THIN PREP TIS PAP AN D HR HPV DNA THIN PREP TIS PAP AND HR HPV DNA Pathology and Cytology Routine Well woman exam with routine gynecological exam Ordered: 09/02/2024 [facility] Comment on above: Ordered: 09/02/2024 Immunizations Immunization Date Immunization Notes Care Provider Ron martin 11-25-2020 SARS-CoV-2 (COVID-19 ) mRNA BNT-162b2 va[facility]asqeL [facility] Comment on above: Result Comment: 2024: [id number] 11-02-2020 SARS-CoV-2 (COVID-19 ) mRNA BNT-162b2 [employer] [facility] Comment on above: Result Comment: 2024: [id number] Payers Date Payer Category Payer Private Health Insurance [id number] 2021 Blue [employer] Blue [employer] BCBS [id number] 1975 Unknown [id number] 1975 Unknown [id number] .[id number] 1975 Unknown [id number] .[id number] 1975 Unknown [id number] .[id number] 1975 Unknown [id number] .[id number] 1975 Unknown [id number] .[id number] 1975 Unknown [id number] .[id number] 1975 Unknown [id number] .[id number] 1959 Unknown [id number] 1959 Unknown [id number] Social History Date Type Detail Facility Tobacco smoking stat [facility] Tobacco smoking consumption unknown [facility] Healthcare Start: 1975 Sex assigned at Not on file [facility] Healthcare Gender identity Not on file [facility] Start: 10-15-2024 Tobacco smoking status Ex-smoker (fi nding) [facility] [place] Tobacco [facility] status [facility] [place] Sexual Orientation [facility] [place] Start: 02-21-2010 Sex Female (finding) [facility] Clinical Note 10-15-2024 Note [...] mRNA BNT-162b2 vax 11/02/2020 Recorded 2024-09-18: [id number] [facility] Comment on above: Result Comment: Elec tronically Signed By: ANTONY MANUEL, Armaan Todd.dee\Date and Time Signed: 10/15/24 13:50 EDT History of Present illness Narrative 09-02-2024 Madisyn Bell, MATERIAL HANDLING SUPERVISOR - 09/02/2024 8:30 AM EDT Note Date [...] nursing note reviewed. Exam conducted with a patient accounts specialist present. Vitals: Estimated body mass index is [...] them. Patient can also view results via [employer]. I reinforced importance of condom use for [...] Toy Aguirre DO documented in this encounter [facility] Clinical Note 04-04-2021 Note Date & Type Note Facility 04-04-2021 Note [facility], [place] NAME: MARY PEDROZA DATE OF : MEDICAL REC#: [id number] INSTRUMENT PERSON: [id number] [facility], TRANSADMIT DATE: 04/04/2021 06:17:00 NUT FEEDER DATE: 04/14/2021 07:00 DICTATING PHYSICIAN: TOY AGUIRRE DICTATION DATE: 04/12/2021 21:00 OPERATIVE NOTE PROCEDURE: Total abdominal hysterectomy, bilateral salpingectomy with cystoscopy PREOPERATIVE DIAGNOSIS: Menorrhagia, dysmenorrhea, dyspareunia as well as failed ablation. POSTOPERATIVE DIAGNOSIS: Same as above. SURGEON: Toy Aguirre D.O. SOLUTIONS OPERATOR: KIMBERLEE Arreola URINE OUTPUT: Yellow and clear. ESTIMATED BLOOD [...] with good visualization of the bladder. An O'Psacal- O-Femi retractor was placed into the patient's [...] by: DR TOY AGUIRRE . 05/07/2021 22:29:00 [facility] Discharge summary note 04-04-2021 Note Date & [...] by: DR TOY AGUIRRE . 05/07/2021 22:28:00 [facility] Evaluation + Plan note Note Date & Type Note Facility Evaluation + Plan note No data available for this section [facility] Evaluation note Note Date & Type Note Facility Evaluation note Diagnosis Well woman exam with routine gynecological exam Routine gynecological examination Breast cancer screening by mammogram documented in this encounter [facility] Discharge instructions Note Date & Type Note Facility Hospital Discharge instructions No data available for this section [facility] Progress note Note Date & Type Note Facility Progress note No data available for this section [facility] Summary Purpose Family History No Family History Records FoundNo Family History Records Found No data available for this section No Family History Records Found Advance Directives No Advanced Directives Records FoundNo Advanced Directives Records FoundNo Advanced Directives Records Found Additional Source Comments INFORMATION SOURCE (unrecogn ized section and content) DATE CREATED AUTHOR 05/12/2021 [facility] DATE CREATED AUTHOR AUTHOR'S ORGANIZ ATION 09/05/2024 [facility] EPIC DATE CREATED AUTHOR AUTHOR'S ORGANIZ ATION 10/16/2024 [facility] Reason for Visit (unrecogniz ed section and content) Reason Comments Well Women Visit Patient Care team informatio n (unrecognized section and content) Personnel Name: Staci Josue MD Address: [address] [place] [address] [employer]: FOR RECORDS PERTAINING TO PATIENTS [...] BE BASED ON THE PRIMARY CLINICAL RECORDS. [employer] provides no warranty or guarantee of the accuracy or completeness of information in this document.
--- OUTSIDE RECORDS SUMMARY | 2024-11-26 06:37 | XMS_ITS | Encounter Summary ---
Author Organization [facility] Address [address] [facility] [place] [address] Care Team Providers Care Institutional Asset Manager Name Role Phone Unavailable Primary Care Provider Unavailabl e Encounter Details Date Type Department Care Team (Late st Contact Info) Description 09/09/2024 Orders Only [facility] [address] [place] [id number] Chantell Sandoval LPN [address] [place] [address] Social History Tobacco Use Types Packs/Day Years [...]
--- OUTSIDE RECORDS SUMMARY | 2024-11-26 06:37 | XMS_ITS | Encounter Summary ---
Author Organization [facility] Address [address] [place] [address] Care Team Providers Care Superintendent [employer] Name Role Phone Unavailable Primary Care Provider Unavailabl e Encounter Details Date Type Department Care Team (Late st Contact Info) Description 10/16/2024 Abstract [facility] [address] [place] [id number] Kushal Aguirre DO [address] [place] [address] Social History Tobacco Use Types Packs/Day Years [...]
[2024-11-26 06:51] VITALS: BP 132/90; PULSE 77; TEMP 36.2; O2SAT 97; BMI 33.0
[2024-11-26 08:13] VITALS: BP 88/54; PULSE 66; TEMP 35.9; O2SAT 96
[2024-11-26 08:28] VITALS: BP 105/66; PULSE 77; O2SAT 97
[2024-11-26 08:43] VITALS: BP 110/73; PULSE 67; O2SAT 97
== END 2024-11-26 08:50 | disposition home or self-care (01) ==
LOC: SURGOUT 06:35
PROVIDERS: PCP Family Medicine; Visit Provider Surgery
PROC: (CPT 812; principal; 2024-11-26 07:55)
DX: Z12.11 Encounter for screening for malignant neoplasm of colon (principal); K21.9 Gastro-esophageal reflux disease without esophagitis; I10 Essential (primary) hypertension; Z87.891 Personal history of nicotine dependence; Z90.710 Acquired absence of both cervix and uterus
CPT/HCPCS: 45378; J2704